=== PATIENT | male | born 1950 | race Caucasian/White ===

== ENCOUNTER 2024-05-31 09:31 | Outpatient (REF) | payer MEDICARE, SELFPAY ==
--- NOTE | ~2024-05-31 | CT_ITS ---
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 COMPARISON: None available. TECHNIQUE: Contiguous axial imaging was performed from the skull base to vertex without intravenous administration of contrast. This CT examination was performed using dose optimization techniques as appropriate, variously including the following: *Automated exposure control *Adjustment of mA and/or kV according to patient size (this includes techniques or standardized protocols for targeted exams where dose is matched to indication/reason for exam; i.e. extremities or head) *Use of iterative reconstruction technique DLP: 800 mGy-cm FINDINGS: No intracranial hemorrhage, large infarction, or mass lesion is seen. Diffuse cortical atrophy and mild bilateral chronic periventricular white matter ischemic change. No extra-axial collection is appreciated. The ventricles are normal in size and configuration without evidence of hydrocephalus. The visualized paranasal sinuses and mastoid air cells are clear. CT/CT head/brain wo IV con IMPRESSION: No acute intracranial finding. Electronically signed by: Omkar Cedeno MD 05/31/2024 02:29 PM EDT
--- NOTE | ~2024-05-31 | XR_ITS ---
EXAMINATION: XR BILATERAL HIPS WITH AP PELVIS CLINICAL INFORMATION: Bilateral hip pain. COMPARISON: None available. TECHNIQUE: AP and frog-leg lateral views of each hip and an AP view of the pelvis. 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 No fracture or malalignment. Joint spaces appear well preserved. SI joints are unremarkable. Facet arthropathy is noted in the lower lumbar spine along with degenerative disc disease at L5-S1. Enthesopathic spurring is present at the ischial tuberosities. XR/XR hip BI w PEL1V IMPRESSION: 1. 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 No acute osseous findings. 2. Degenerative disc disease and facet arthropathy in the lower lumbar spine. Electronically signed by: Wyatt Perez MD 05/31/2024 12:38 PM EDT
== END 2024-05-31 09:32 | disposition home or self-care (01) ==
LOC: HO.CT 09:31
PROVIDERS: PCP Nurse Practitioner Family; Visit Provider Psychiatry & Neurology Neurology
DX: M25.551 Pain in right hip (principal); M25.552 Pain in left hip; G23.9 Degenerative disease of basal ganglia, unspecified
CPT/HCPCS: 70450; 73521

== ENCOUNTER 2024-09-02 18:32 | Emergency (ER) | payer MEDICARE, MEDICAID, SELFPAY ==
--- NOTE | 2024-09-02 | ECG_ITS ---
Test Reason : CHEST PAIN Blood Pressure : / mmHG Vent. Rate : 100 BPM Atrial Rate : 100 BPM P-R Int : 164 ms QRS Dur : 078 ms QT Int : 346 ms P-R-T Axes : 046 -20 064 degrees QTc Int : 446 ms Normal sinus rhythm Septal infarct , age undetermined Inferior infarct , age undetermined Abnormal ECG No previous ECGs available Referred By: Generic ED Physician Electronically Signed By:Efren Colby
--- NOTE | ~2024-09-02 | CT_ITS ---
EXAMINATION: CT ABDOMEN AND PELVIS WITH CONTRAST CLINICAL INFORMATION: Epigastric pain COMPARISON: None available. TECHNIQUE: Multidetector volumetric images were obtained from the superior aspect of the liver through the pubic symphysis following administration 85 mL of Omnipaque 350 intravenous contrast. Sagittal and coronal reformatted images were obtained on the technologist's workstation. Oral contrast: No This CT examination was performed using dose optimization techniques as appropriate, variously including the following: *Automated exposure control *Adjustment of mA and/or kV according to patient size (this includes techniques or standardized protocols for targeted exams where dose is matched to indication/reason for exam; i.e. extremities or head) *Use of iterative reconstruction technique DLP: 720 mGy-cm FINDINGS: LUNG BASES: The visualized lung bases are unremarkable. LIVER, GALLBLADDER, AND BILIARY TREE: Large right lobe is lobulated well-defined low-density lesion measuring up to 9.3 cm. It measures low density favoring a cyst. Smaller cyst segment 5 noted measuring approximately 10 mm. The morphology normal. Scattered other cysts within the left lobe subcentimeter in size. The gallbladder is unremarkable with no evidence of radiopaque gallstones, gallbladder wall thickening, or obvious pericholecystic inflammatory changes. No biliary ductal dilatation. PANCREAS: Unremarkable. SPLEEN: Unremarkable. ADRENAL GLANDS: Unremarkable. KIDNEYS AND URETERS: The kidneys are normal in size, shape, and attenuation. No hydronephrosis, hydroureter, or calculi seen. No perinephric stranding. BLADDER: Diffusely thick wall without evidence for any stones. GASTROINTESTINAL TRACT: The small and large bowel are unremarkable. No inflammatory changes or fluid collection. ABDOMINAL WALL: No significant hernia is appreciated. LYMPH NODES: Normal. VASCULAR: Unremarkable. PELVIC VISCERA: Unremarkable. OSSEOUS STRUCTURES: Unremarkable. CT/CT abdomen pelvis w IV con IMPRESSION: 1. No specific findings to explain patient's symptoms. 2. Incidental hepatic cysts as above. 3. Large right lobe is lobulated well-defined low-density lesion measuring up to 9.3 centimeter is most consistent with a large hepatic cyst. Fleischner guidelines were followed. Electronically signed by: Josep Chambers MD 09/02/2024 09:32 PM [facility]
--- NOTE | ~2024-09-02 | XR_ITS ---
EXAMINATION: XR CHEST CLINICAL INFORMATION: sob COMPARISON: None available. TECHNIQUE: Frontal view of the chest was obtained. FINDINGS: Mild peribronchial vascular opacities may reflect edema or atypical infection. No effusion or pneumothorax. Cardiomediastinal silhouette is within normal limits. XR/XR chest 1V IMPRESSION: Mild peribronchial vascular opacities may reflect edema or atypical infection. Electronically signed by: Anca Montano MD 09/02/2024 07:30 PM [facility]
[2024-09-02 18:35] VITALS: BP 144/92; BP 170/79; PULSE 108; PULSE 109; RESP 18; TEMP 36.7; O2SAT 94; O2SAT 96; BMI 25.2
[2024-09-02 18:59] LABS: MANUAL DIFF FLAG NO
[2024-09-02 19:01] LABS: Basophils Absolute Auto 0.1 X10*3/uL (0.0-0.2); Basophils Percent Auto 0.3 % (0-2); Eosinophils Absolute Auto 0.1 X10*3/uL (0.0-0.4); Eosinophils Percent Auto 0.6 % (0-4); Hematocrit 42.1 % (42.0-52.0); Imm Gran Abs Auto 0.06 X10*3/uL (0.00-0.03); Imm Gran Pct Auto 0.4 % (0.0-0.4); Lymphocytes Absolute Auto 1.3 X10*3/uL (1.2-4.9); Lymphocytes Percent Auto 8.1 % (20-40); Mean Corpuscular HGB Conc 33.3 g/dl (31.0-36.0); Mean Corpuscular Hemoglobin 32.3 pg (27.0-33.0); Mean Platelet Volume 10.4 fL (9.4-12.4); Monocytes Percent Auto 6.7 % (2-11); Neutrophils Percent Auto 83.9 % (45-73); Platelet Count 290 X10*3/uL (160-400); Red Blood Count 4.34 X10*6/uL (4.60-5.80); Red Cell Distribution Width 12.4 % (11.0-16.0); White Blood Count 15.4 X10*3/uL (4.8-10.8)
[2024-09-02 19:37] LABS: Influenza A PCR NEGATIVE (Negative); Influenza B PCR NEGATIVE (Negative); Resp Syncy Virus RNA Qual PCR NEGATIVE (Negative); SARS COV2 PCR INHOUSE NEGATIVE (Negative)
[2024-09-02 19:40] LABS: Alanine Aminotransferase 25 U/L (0-40); Albumin Level 3.8 g/dL (3.5-5.0); Alkaline Phosphatase 92 U/L (39-117); Anion Gap 17 (12-20); Aspartate Amino Transferase 48 U/L (5-37); Bilirubin Total 0.3 mg/dL (0.0-1.0); Blood Urea Nitrogen 32 mg/dL (9-16); Calcium 8.9 mg/dL (8.4-10.2); Carbon Dioxide 25 mmol/L (22-29); Chloride 108 mmol/L (96-108); Creatinine Clr Calc Pharmacy 75.1; Estimated Glomerular Filt Rate > 60; Glucose Random 119 mg/dL (60-115); Magnesium 2.1 mg/dL (1.6-2.6); Potassium 4.1 mmol/L (3.3-5.1); Sodium 146 mmol/L (135-145); Total Protein 7.4 g/dL (6.5-8.0)
[2024-09-02 19:47] LABS: Troponin-I High Sensitivity 18.7 ng/L (<3.5-35.0)
[2024-09-02 20:05] VITALS: BP 164/77; PULSE 94; RESP 16; TEMP 36.7; O2SAT 98
--- NOTE | 2024-09-02 20:33 | ED.CHESTPAIN ---
HPI - Chest Pain General Chief Complaint: Chest Pain Stated Complaint: chest pain after trying to pass bowel movement Time Seen by Provider: 09/02/24 20:18 Source: patient, EMS and other (skilled nursing [employer] consultant) Mode of arrival: EMS Limitations: other (TBI) History of Present Illness ED Provider: Dr. Ania Akers HPI narrative: Patient comes to the emergency room by ambulance from a retirement. According to the patient, they retirement [employer] consultant and EMS, patient has been complaining of burning sensation. According to the patient's [employer] consultant, patient started complaining of chest pain after having a bowel movement. However, patient states that it is not pain, it is a burning sensation radiating from his stomach up to his chest. EMS gave the patient 1 dose of p.o. aspirin 324 mg. Related Data Previous Rx's ?Medication ?Instructions ?Recorded omeprazole 40 mg capsule,delayed 40 mg PO DAILY #60 caps 09/02/24 release Allergies Allergy/AdvReac Type Severity Reaction Status Date / Time No Known Allergies Allergy Verified 09/02/24 18:41 Review of Systems Review of Systems: Constitutional : No Weight loss, No Fever, No Chills, No Night Sweats, No Fatigue, No Malaise ENT/Mouth : No Hearing loss, No Ear Pain, No Nasal Congestion, No Sinus Pain, No Hoarseness, No sore throat, No Rhinorrhea, No Swallowing Difficulty Eyes: No Eye Pain, No Swelling, No Redness, No Foreign Body, No Discharge, No Vision Changes Cardiovascular : No Chest Pain, No SOB, No Dyspnea on Exertion, No Orthopnea, No Edema, No Palpitations Respiratory : No Cough, No Sputum, No Wheezing, No Smoke Exposure, No Dyspnea Gastrointestinal : No Nausea, No Vomiting, No Diarrhea, No Constipation, complaining of burning epigastric pain radiating towards the chest Genitourinary : no irregular bleeding, No Dysuria, No Urinary Frequency, No Hematuria, No Urinary Incontinence, No Urgency, No Flank Pain, No Urinary Flow Changes, No Hesitancy Musculoskeletal : No joint pain, No Myalgias, No Joint Swelling Skin : No Skin Lesions, No rash Neuro : No Weakness, No Numbness, No Paresthesias, No Loss of Consciousness, No Dizziness, No Headache Psych : No Anxiety/Panic, No Depression, No SI/HI/AH/VH, No Social Issues, Heme/Lymph: No Bruising, No Bleeding,No Lymphadenopathy Endocrine : No Polyuria, No Polydipsia, No Temperature Intolerance [facility] Past Medical History Medical History (Updated 09/02/24 @ 23:15 by Ania Akers MD) Parkinsons Social History Social History Smoked in Last 30 Days: No Use of substances other than those prescribed or required for medical reasons: No Advance Directives: No Advance Directives Information Provided: No Do you have a plan to hurt others: No Plan Physical Exam Vital Signs: Vital Signs: Last Vital Signs Temp 97.6 F 09/02/24 22:30 Pulse 94 09/02/24 22:30 Resp 22 H 09/02/24 22:30 BP 150/71 H 09/02/24 22:30 Pulse Ox 97 09/02/24 22:30 O2 Del Method Room Air 09/02/24 22:30 BMI result Body Mass Index 25.2 Const: Other: Appearance: Alert. No acute distress. Eyes: Pupils equal, round and reactive to light. ENT: Pharynx normal. Neck: Normal inspection. Neck supple. No lymph nodes noted. No crepitus CVS: Normal heart rate and rhythm. Pulses normal. Normal S1 and S2 Respiratory: No respiratory distress. Breath sounds normal. No Wheezing. No rales Abdomen: Soft , tenderness to palpation in the epigastric area, no rebound or guarding. Mild pain in the periumbilical area. Skin: Skin warm and dry. Normal skin color. Normal skin turgor. Extremities: No lower extremity edema. No Lacerations. No Rash Neuro: Oriented X 3. No motor deficit. No sensory deficit. Moving all extremities. No slurred speech. CN 2 through 12 grossly intact Psych: calm, cooperative, normal affect Course Course Course Narrative: Patient denies chest but complaining of epigastric burning sensation and epigastric pain. Patient received 324 mg of aspirin per EMS Patient denies any chest pain at this point Vitals stable, blood pressure 164/77, heart rate 94 CT scan of the abdomen/pelvis pending Medications Administered Discontinued Medications Generic Name Dose Route Start Last Admin Trade Name Freq PRN Reason Stop Dose Admin Iohexol 100 ml 09/02/24 20:53 09/02/24 20:53 Iohexol 350 Mg/Ml 100 Ml Infus..Btl IV 09/02/24 20:54 85 ml ONCE ONE Administration Medical Decision Making Medical Decision Making [facility] Narrative: My interpretation of labs: Patient's white blood cell count 15.4, chemistry does not show any significant electrolyte abnormality, troponin x2 negative, BNP negative -CT scan does not show any acute abnormality, chronic large right hepatic cyst -patient stable Patient was given p.o. Maalox and viscous lidocaine for symptomatic treatment Patient is adamant that he has no chest pain Differential Diagnosis Differential Diagnoses: The differential diagnosis associated with the presentation includes (ACS, pancreatitis, choledocholithiasis, cholecystitis) Admission/Observation Consideration of admission/observation: Escalation of care including admission/observation considered (Given patient's age and symptoms, observation was considered.) Lab Data [facility] Lab Attestation statement: I reviewed the patient's lab results. 09/02/24 18:49 09/02/24 19:20 Labs: Lab Results 09/02/24 09/02/24 09/02/24 Range/Units 18:49 18:50 19:20 WBC 15.4 H (4.8-10.8) X10*3/uL RBC 4.34 L (4.60-5.80) X10*6/uL Hgb 14.0 (14.0-18.0) g/dl Hct 42.1 (42.0-52.0) % MCV 97.0 (80.0-98.0) fL MCH 32.3 (27.0-33.0) pg MCHC 33.3 (31.0-36.0) g/dl RDW 12.4 (11.0-16.0) % Plt Count 290 (160-400) X10*3/uL MPV 10.4 (9.4-12.4) fL Immature Gran % (Auto) 0.4 (0.0-0.4) % Neut % (Auto) 83.9 H (45-73) % Lymph % (Auto) 8.1 L (20-40) % Barry % (Auto) 6.7 (2-11) % Eos % (Auto) 0.6 (0-4) % Baso % (Auto) 0.3 (0-2) % Lymph # (Auto) 1.3 (1.2-4.9) X10*3/uL Barry # (Auto) 1.0 (0.1-1.2) X10*3/uL Eos # (Auto) 0.1 (0.0-0.4) X10*3/uL Baso # (Auto) 0.1 (0.0-0.2) X10*3/uL Abs Immat Gran (auto) 0.06 H (0.00-0.03) X10*3/uL Absolute Neuts (auto) 13.0 H (2.0-8.3) x10*3/uL Absolute Nucleated RBC 0.000 (0.0-0.012) X10*3/uL Nucleated RBC % (auto) 0.0 (0.0-0.2) /100WBC Sodium 146 H (135-145) mmol/L Potassium 4.1 (3.3-5.1) mmol/L Chloride 108 (96-108) mmol/L Carbon Dioxide 25 (22-29) mmol/L Anion Gap 17 (12-20) BUN 32 H (9-16) mg/dL Creatinine 0.89 (0.5-1.4) mg/dL Estim Creat Clear Calc 75.1 Estimated GFR > 60 Random Glucose 119 H (60-115) mg/dL Calcium 8.9 (8.4-10.2) mg/dL Magnesium 2.1 (1.6-2.6) mg/dL Total Bilirubin 0.3 (0.0-1.0) mg/dL AST 48 H (5-37) U/L ALT 25 (0-40) U/L Alkaline Phosphatase 92 (39-117) U/L Troponin I High Sens 18.7 (<3.5-35.0) ng/L B-Natriuretic Peptide < 10 (<100) pg/mL Total Protein 7.4 (6.5-8.0) g/dL Albumin 3.8 (3.5-5.0) g/dL Lipase 18 (8-78) U/L Influenza Type A (PCR) NEGATIVE (Negative) Influenza Type B (PCR) NEGATIVE (Negative) RSV RNA Qual (PCR) NEGATIVE (Negative) SARS-CoV-2 RNA (RT-PCR) NEGATIVE (Negative) 09/02/24 Range/Units 22:29 WBC (4.8-10.8) X10*3/uL RBC (4.60-5.80) X10*6/uL Hgb (14.0-18.0) g/dl Hct (42.0-52.0) % MCV (80.0-98.0) fL MCH (27.0-33.0) pg MCHC (31.0-36.0) g/dl RDW (11.0-16.0) % Plt Count (160-400) X10*3/uL MPV (9.4-12.4) fL Immature Gran % (Auto) (0.0-0.4) % Neut % (Auto) (45-73) % Lymph % (Auto) (20-40) % Barry % (Auto) (2-11) % Eos % (Auto) (0-4) % Baso % (Auto) (0-2) % Lymph # (Auto) (1.2-4.9) X10*3/uL Barry # (Auto) (0.1-1.2) X10*3/uL Eos # (Auto) (0.0-0.4) X10*3/uL Baso # (Auto) (0.0-0.2) X10*3/uL Abs Immat Gran (auto) (0.00-0.03) X10*3/uL Absolute Neuts (auto) (2.0-8.3) x10*3/uL Absolute Nucleated RBC (0.0-0.012) X10*3/uL Nucleated RBC % (auto) (0.0-0.2) /100WBC Sodium (135-145) mmol/L Potassium (3.3-5.1) mmol/L Chloride (96-108) mmol/L Carbon Dioxide (22-29) mmol/L Anion Gap (12-20) BUN (9-16) mg/dL Creatinine (0.5-1.4) mg/dL Estim Creat Clear Calc Estimated GFR Random Glucose (60-115) mg/dL Calcium (8.4-10.2) mg/dL Magnesium (1.6-2.6) mg/dL Total Bilirubin (0.0-1.0) mg/dL AST (5-37) U/L ALT (0-40) U/L Alkaline Phosphatase (39-117) U/L Troponin I High Sens 15.6 (<3.5-35.0) ng/L B-Natriuretic Peptide (<100) pg/mL Total Protein (6.5-8.0) g/dL Albumin (3.5-5.0) g/dL Lipase (8-78) U/L Influenza Type A (PCR) (Negative) Influenza Type B (PCR) (Negative) RSV RNA Qual (PCR) (Negative) SARS-CoV-2 RNA (RT-PCR) (Negative) Independent Interpretation I performed an independent interpretation of an: CT Scan Radiology Impression Discussion of test interpretation with radiology: I have reviewed the radiologist's reading. Radiologist Impression: 1. No specific findings to explain patient's symptoms. 2. Incidental hepatic cysts as above. 3. Large right lobe is lobulated well-defined low-density lesion measuring up to 9.3 centimeter is most consistent with a large hepatic cyst. Independent Historian Clinical information obtained from an independent historian. History obtained from or confirmed by: Other (skilled nursing [employer] consultant) Critical Care Time Critical Care Time Critical Care Time: Yes Total Critical Care Time: 45 Attestation: I have personally provided critical care time. Time includes review of lab data, radiology results, discussion with consultants, and monitoring for potential decompensation. Intervention performed as documented. Discharge Plan Discharge Clinical Impression: Abdominal pain, Chest pain due to GERD Patient Disposition: Home, Self-Care Instructions: Chest Pain (ED), Diet for Stomach Ulcers and Gastritis (ED), Abdominal Pain (ED) Additional Instructions: Please follow-up with your primary care physician tomorrow. If you have any worsening or new symptoms, please return to the emergency room or call 911 Prescriptions: New omeprazole 40 mg capsule,delayed release(DR/EC) 40 mg PO DAILY Qty: 60 0RF Print Language: Azeri
[2024-09-02 20:49] LABS: Lipase 18 U/L (8-78)
[2024-09-02 20:51] LABS: B Type Natriuretic Peptide < 10 pg/mL (<100)
[2024-09-02] MEDS: iohexoL 350 MG/ML 100 ML INFUS..BTL IV (20:53)
[2024-09-02 22:30] VITALS: BP 150/71; PULSE 94; RESP 22; TEMP 36.4; O2SAT 97
[2024-09-02 22:52] LABS: Troponin-I High Sensitivity 15.6 ng/L (<3.5-35.0)
[2024-09-02] MEDS: Magnesium Hydrox/Alum Hydrox 30 ML ORAL.SUSP 15 ML PO (23:37)
[2024-09-02] MEDS: Lidocaine HCl Viscous 2 % 15 ML SOLUTION MUCOUS MEM (23:37)
[2024-09-03 01:01] VITALS: BP 150/71; PULSE 94; RESP 22; TEMP 36.4; O2SAT 97
== END 2024-09-03 01:02 | disposition home or self-care (01) ==
PROVIDERS: Emergency Provider Emergency Medicine
DX: R07.89 Other chest pain (principal); K21.9 Gastro-esophageal reflux disease without esophagitis; R10.2 Pelvic and perineal pain; R06.02 Shortness of breath; R10.33 Periumbilical pain; Z03.818 Encounter for observation for suspected exposure to other biological agents ruled out; Z79.899 Other long term (current) drug therapy
CPT/HCPCS: 0241U; 36415; 71045; 74177; 80053; 83690; 83735; 83880; 84484; 85025; 93005; 99285; Q9967

== ENCOUNTER → 2024-09-02 18:50 | Outpatient (BNV) | payer MEDICARE, MEDICAID, SELFPAY | PROVIDERS: Emergency Provider Emergency Medicine; Visit Provider Internal Medicine Cardiovascular Disease | DX: R07.9 Chest pain, unspecified (principal); R94.31 Abnormal electrocardiogram [ECG] [EKG] | CPT/HCPCS: 93010 ==

== ENCOUNTER 2025-05-08 10:57 | Outpatient (AMB) | payer MEDICARE, MEDICAID, SELFPAY ==
--- OUTSIDE RECORDS SUMMARY | 2024-12-13 07:00 | XMS_ITS ---
Author Organization [facility] Address [address] [facility] [address] [place] [address] Care Team Providers Care Director Metabolism Name Role Phone Dorothy Jane Primary Care Provider Shay Carrasco Unavailable [phone] REASON FOR VISIT Follow up wound care Medications Medication SIG (Take, Route, Frequency, Duration) Notes Start Date End Date Status Linezolid 600 MG 1 tablet Orally ever y 12 hrs; Duration: 10 days 12/10/2024 Active Colace 100 MG 1 capsule as needed Orally twice daily Active Flomax 0.4 MG 1 capsule Orally Onc e a day Active Acetaminophen 325 MG 1 tablet as needed Orally every 6 hrs 04/16/2024 Active Sinemet 25-100 MG 1 tablet as needed Orally three times daily Active Protein - as directed Orally Pro heal 30 G m twice daily Active Omeprazole 20 MG 1 tablet 30 minutes before morning meal Orally Once a day; Duration: 30 day(s) 04/16/2024 Active Encounters Encounter Location Date Provider Diagnosis [facility] [address] [facility] [address] [place] [address] 12/13/2024 Shay Vidal Wheelchair dependenc e Z99.3 ; Pressure ulcer of left hip, stage 3 L89.223 and Cognitive communication deficit R41.841 Assessments Encounter Date Diagnosis (ICD Code) Assessment Notes Treatment Notes Treatment Clinical Notes Section Notes 12/13/2024 Wheelchair dependence (ICD-10 - Z99.3) 12/13/2024 Pressure ulcer of left hip, stage 3 (ICD-10 - L89.223) 12/13/2024 Cognitive communication deficit (ICD-10 - R41.841) 12/13/2024 Andie Ricky is followed for 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 He continues with wound vac at this time. He is accompanied by a caregiver from his skilled nursing. HIs wound vac was not able to be placed due to electric charging cord stripped and pending skilled nursing to [facility] On assessment today, Ricky is noted to be afebrile and other VS were within normal limits. The patient appears not to have pain or discomfort related to the wound. We removed dressings, and I examined the wound site. There is concern for underlying s/s of infection. Mil odor and surroudning erythema noted The left hip stage 3 pressure ulcer is noted noted with epibole to periwound and The wound bed is noted with slough as well After examination, I discussed the indication of debridement and the [facility] staff and patient was agreeable. I then performed debridement to remove devitalized tissues as outlined. He tolerated procedure well. Due to wound vac ot available for use and wound culutre obtained at todays appointment, willl place wound vac on hold x1 week pending culture. Cleanse wound with normal saline, zinc to periwound and HFB ready to wound bed and cover with dry dressing Patient and caregiver was educated to continue the above treatment plan with follow up at clinic next week. restart wound vac dependent on culture resultes and and when charging cable arrives to skilled nursing Educated on importance of off loading, repositioning, nutrition, hydration I, Shay Vidal, MSN, CALENDER LET OFF HELPER, DEFLASH AND WASH OPERATOR-C, examined, evaluated, and treated the patient. Dr. Angie Kang was available for any questions or concerns that I may have had. 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 He continues with wound vac at this time. He is accompanied by a caregiver from his skilled nursing. HIs wound vac was not able to be placed due to electric charging cord stripped and pending skilled nursing to [facility] On assessment today, Ricky is noted to be afebrile and other VS were within normal limits. The patient appears not to have pain or discomfort related to the wound. We removed dressings, and I examined the wound site. There is concern for underlying s/s of infection. Mil odor and surroudning erythema noted The left hip stage 3 pressure ulcer is noted noted with epibole to periwound and The wound bed is noted with slough as well After examination, I discussed the indication of debridement and the [facility] staff and patient was agreeable. I then performed debridement to remove devitalized tissues as outlined. He tolerated procedure well. Due to wound vac ot available for use and wound culutre obtained at todays appointment, willl place wound vac on hold x1 week pending culture. Cleanse wound with normal saline, zinc to periwound and HFB ready to wound bed and cover with dry dressing Patient and caregiver was educated to continue the above treatment plan with follow up at clinic next week. restart wound vac dependent on culture resultes and and when charging cable arrives to skilled nursing Educated on importance of off loading, repositioning, nutrition, hydration I, Shay Vidal, MSN, CALENDER LET OFF HELPER, DEFLASH AND WASH OPERATOR-C, examined, evaluated, and treated the patient. Dr. Angie Kang was available for any questions or concerns that I may have had. Next Appt Details Follow Up: 1 Week, Reason: Progress Notes * Antwon ALEXANDERhDOB: 0 (75 yo M)Acc No.[id number]:12/13/2024 Patient: Ricky MONROE Provider: Shereen Vidal NP :1950 A ge:74 Y S ex:Male Date:12/13/2024 Address:[address] [place] [address] Pcp:Dorothy Jane Subjective: * Chief Complaints: * 1 . Follow up wound care. * HPI: W ound Care: Ricky is a returning 74 y/o male patient presents for follow up the left hip pressure wound. He is accompanied by a [facility] staff today. Per skilled nursing staff, the left hip wound has been present since approx 08/29/24. However, the staff does not recall how patient sustained the wound. Pt usually leans one side on his wheelchair and assuming he sustained the wound from the pressure. Pt' left hip area wound has been worsened and there was thick eschar and now unstageable. The 11/08/24: Patient with plan for wound vac placement. 11/01/24 wound culture obtained and grew proteus Mirabilis, enterococci, Escherichia coli, susceptible to amox clav, escribed 10-day course on 11/07/24 Currently he is being treated with wound vac at 125 mmHg with black foam. VNA goes to skilled nursing and provides wound vac changes twice a week, On 11/27/24 the skilled nursing staff stated that the nurse performing wound vac change wound not position tubbing to accommodate patients needs 12/06/24 patient broke wound vac electrical cord, and skilled nursing calling fay lay nephew to have one delivered. * ROS: G eneral / Constitutional: Patient denies c hills, fatigue, fever. R espiratory: Patient denies c ough, shortness of breath. ? M usculoskeletal: Comments P t is wheelchair bound. S kin: Patient denies a ny new concerns related to wound(s) at todays visit. * Medical History: * Medications: T aking Protein - Liquid as directed Orally , Notes to Pharmacist: Pro heal 30 Gm twice daily, Taking Sinemet 25-100 MG Tablet 1 tablet as needed Orally three times daily , Taking Flomax 0.4 MG Capsule 1 capsule Orally Once a day , Taking Colace 100 MG Capsule 1 capsule as needed Orally twice daily , Taking Acetaminophen 325 MG Tablet 1 tablet as needed Orally every 6 hrs , Taking Omeprazole 20 MG Tablet Delayed Release 1 tablet 30 minutes before morning meal Orally Once a day , Taking Linezolid 600 MG Tablet 1 tablet Orally every 12 hrs Objective: * Vitals: Assessment: * Assessment: 1. P ressure ulcer of left hip, stage 3 - L89.223 (Primary) 2 . W heelchair dependence - Z99.3 3 . C ognitive communication deficit - R41.841 ? Plan: * Treatment: * Procedure Codes: 1 1043 DEBRIDE TISSUE/MUSCLE * Follow Up: 1 Week * Billing Information: * Visit Code: * Procedure Codes: 43734 DEBRIDE TISSUE/MUSCLE. * Electronic signature of Kwan Vidal NP on 05/08/2025 at 11:51 AM EDT Sign off status: Pending * Provider: Shereen Vidal NP Date: 0 12/13/2024 Generated for Jayson blackwell/Seven/Monetitting on: 0 05/08/2025 11:51 AM EDT History and Physical Notes * HPI (History of Present Illness) Category Sub-Category Detail Notes Category Not es Wound Care Ricky is a returning 74 y/o male patient presents for follow up the left hip pressure wound. He is accompanied by a [facility] staff today. Per skilled nursing staff, the left hip wound has been present since approx 08/29/24. However, the staff does not recall how patient sustained the wound. Pt usually leans one side on his wheelchair and assuming he sustained the wound from the pressure. Pt' left hip area wound has been worsened and there was thick eschar and now unstageable. The 11/08/24: Patient with plan for wound vac placement. 11/01/24 wound culture obtained and grew proteus Mirabilis, enterococci, Escherichia coli, susceptible to amox clav, escribed 10-day course on 11/07/24 Currently he is being treated with wound vac at 125 mmHg with black foam. VNA goes to skilled nursing and provides wound vac changes twice a week, On 11/27/24 the skilled nursing staff stated that the nurse performing wound vac change wound not position tubbing to accommodate patients needs 12/06/24 patient broke wound vac electrical cord, and skilled nursing calling fay schneider to have one delivered
--- OUTSIDE RECORDS SUMMARY | 2025-04-23 12:30 | XMS_ITS | Encounter Summary ---
Author Organization [facility] Address [address] [place] [address] Care Team Providers Care Defective Cigarette Slitter Name Role Phone Octavio Sanchez MD Primary Care Provider [phone] Reason for Visit * Reason Comments Wound Care Encounter Details Date Type Department Care Team (Late st Contact Info) Description 04/23/2025 12:30 PM EDT Office Visit [facility] [address] [place] [phone] Oswald Zaman PA [address] [place] [address] Pressure injury of left hip, stage 4 (CMS/HCC V24, CMS/HCC V28) (Primary Dx) Social History Tobacco Use Types Packs/Day Years Used Date Smoking Tobacco: Never Smokeless Tobacco: Never Alcohol Use Standard Drinks/Week Comments No 0 (1 standard drink = 0.6 oz pur e alcohol) Sex and Gender Information Value Date Recorded Sex Assigned at Male 09/19/2024 2:55 PM EST Legal Sex Male 2:02 PM EST Gender Identity Male 09/19/2024 2:55 PM EST Sexual Orientation Straight 09/19/2024 2: 55 PM EST documented as of this encounter Last Filed Vital Signs Vital Sign Reading Time Taken Comments Blood Pressure 149/76 04/23/2025 12:46 PM EDT Pulse 90 04/23/2025 12:46 PM EDT Temperature 36.3 C (97.4 F) 04/23/2025 12:46 PM EDT Respiratory Rate 16 04/23/2025 12:46 PM EDT Oxygen Saturation 96% 04/23/2025 12:46 PM EDT Inhaled Oxygen Concentration - - Weight - - Height - - Body Mass Index - - documented in this encounter Progress Notes * Yeimy Sierra RN - 04/23/2025 12:30 PM EDT PROVIDER ORDERS Go to ER if you are presenting with fever, chills, increased redness, pain, swelling, warmth aroundwound area and/or foul smelling odor. If you have any questions or concerns, please contact the [place] [facility] at . Kriss pad given to staff, please have it under pt prior to next appt if pt unable to transfer with staff Follow up(s)/ Referrals: N/A [facility]: Home care: [facility] Additional Orders: Increase protein in your diet to help promote wound healing Lidocaine Orders: Apply Lidocaine 4% Topical Solution prior to debridements at Wound Care appointments Edema Control: (If your compression wrap(s) feel to tight, please elevate your leg(s) about heart level. If your wrap(s) are becoming painful and/or you loose sensation of toes/ are having toe discoloration (a change from your baseline), please remove / unwrap compression and notify [facility] at . ) N/A Offloading: Low air-loss mattress (Group 2), Turn and reposition every 2 hours. Reposition ever hour while up in chair., Limit pressure to wound as much as possible - Offload heels Negative Pressure Wound Therapy: (If wound vac is off/non functioning for more than 2 hours, please remove vac dressing, apply a wetto dry dressing and notify your home care agency) N/A Cellular/Tissue Based Products: N/A Bathing / Showering / Hygiene: May shower with protection but DO NOT get wound dressing(s) wet. Protect dressing(s) with water repellant cover ( for example- large plastic bag or cast bag) and then may take shower. Non-wound Condition/ Other Skin Care: N/A Wound Location(s): Wound #1 (Left Hip): Cleanser: Cleanse with Normal Saline Periwound: Apply Skin Prep to julio cesar wound Topical: N/A Primary dressing: Collagen with Silver- will dissolve in wound. If not dissolving you may moisten with saline prior to covering. (gently pack into wound, will dissolve) Secondary dressinx4 Foam border dressing Secure with: N/A Compression Therapy: N/A Dressing Change Frequency: Every Other Day * Laura Wyatt RN - 04/23/2025 12:30 PM EDT Discharge Patient directed to check out at front end loader operator and collect visit summary with wound care directions and book follow up as directed. Dressings applied: Wound #1 (Left Hip): Cleanser: Normal Saline Periwound: Skin Prep Primary dressing: Collagen with Silver- pre moistened Secondary dressinx4 Foam border dressing Dressing technique was demonstrated and explained. Patient questions answered. Pt discharge from wound care center without issue or incidence. documented in this encounter Plan of Treatment Upcoming Encounters Date Type Department Care Team (Late st Contact Info) Description 05/15/2025 3:00 PM EDT Office Visit Internal Medicine - [place] [facility] [address] [place] [address] Andrea Burciaga NP [address] [place] [address] 05/27/2025 10:40 AM EDT Office Visit [facility] [address] [facility] [address] [place] [address] Blossom Juárez NP [place] [address] 05/28/2025 1:00 PM EDT Clinical Support [facility] [address] [place] [phone] documented as of this encounter Goals Goal Patient Goal Type Associated Problems Recent Progress Patient-Stated? Author PT LTGs General No Ricco Azul PT Note: Pt and caregiver will be independent with HEP - met Decrease Wound Volume by X% by date (in notes) Care Plan Impaired Tissue Improving( 2:11 PM EDT) Frances Jacobson RN Patient and Caregiver Understand Wound Care Education Care Plan Impaired Tissue On track( 025 2:12 PM EDT) Frances Jacobson RN Wound volume breakdown reduced by X% by week 4 Care Plan Impaired Tissue No Frances Thompson RN Wound volume breakdown reduced by X% by week 8 Care Plan Impaired Tissue No Frances Thompson RN Wound volume breakdown reduced by X% by week 12 Care Plan Impaired Tissue No Frances Thompson RN Quit using tobacco (cigarettes, smokeless, etc) Care Plan Education needed on impact of smoking on wound No Frances Thompson RN Reduce tobacco use (cigarettes, smokeless, etc) Care Plan Education needed on impact of smoking on wound No Frances Thompson RN Decrease Wound Volume by X% by date (in notes) Care Plan Education needed on impact of smoking on wound Frances Jacobson RN Patient and Caregiver Understand Wound Care Education Care Plan Education needed related to ulceration/comp romised skin integrity. No Frances Thompson RN documented as of this encounter Visit Diagnoses Diagnosis Pressure injury of left hip, stage 4 (CMS/HCC V24, CMS/HCC V28)- Primary documented in this encounter Additional Health Concerns Active Problems Noted Date Diagnosed Date Impaired Tissue 12/14/2024 Education needed on impact of smoking on wound 0 12/14/2024 Education needed related to ulceration/compromised skin integrity. 12/14/2024 Assessment Noted Time PHQ-9 Depression Total Score: 0 12/15/19 10:10 AM EDT documented as of this encounter Care Teams Defective Cigarette Slitter Relationship Specialty Start Date End Date Octavio Sanchez MD [address] [place] [phone] PCP - General Internal Medicine 09/21/24 documented as of this encounter
--- OUTSIDE RECORDS SUMMARY | 2025-05-07 13:15 | XMS_ITS | Encounter Summary ---
Author Organization [facility] Address [address] [place] [address] Care Team Providers Care Animation Camera Operator Name Role Phone Octavio Sanchez MD Primary Care Provider [phone] Reason for Visit * Reason Comments Wound Care Encounter Details Date Type Department Care Team (Late st Contact Info) Description 05/07/2025 1:15 PM EDT Office Visit [facility] [address] [place] [phone] Oswald Zaman PA [address] [place] [address] Pressure injury of left hip, stage 4 [...] Sign Reading Time Taken Comments Blood Pressure 149/60 05/07/2025 1:34 PM EDT Pulse 82 05/07/2025 1:34 PM EDT Temperature 36.6 C (97.8 F) 05/07/2025 1:34 PM EDT Respiratory Rate 18 05/07/2025 1:34 PM EDT Oxygen Saturation 97% 05/07/2025 1:34 PM EDT Inhaled Oxygen Concentration - - Weight - - Height - - Body Mass Index - - documented in this encounter Progress Notes * Yeimy Sierra RN - 05/07/2025 1:15 PM EDT PROVIDER ORDERS Go to ER if you are presenting with fever, chills, increased redness, pain, swelling, warmth aroundwound area and/or foul smelling odor. If you have any questions or concerns, please contact the [facility] [place] at . Kriss pad given to staff, please have it under pt prior to next appt if pt unable to transfer with staff Follow up(s)/ Referrals: N/A Long Term: Home care: [facility] Additional Orders: Increase [...] compression and notify [facility] at . ) N/A Offloading: Low [...] Skin Prep to julio cesar wound Topical: Woun'dres- Apply a thin layer to wound bed Primary dressing: N/A Secondary dressinx4 Foam border dressing Secure with: N/A Compression Therapy: N/A Dressing Change Frequency: Every Other Day * Frances Thompson RN - 05/07/2025 1:15 PM EDT Discharge Patient directed to check out at medical front desk coordinator and collect visit summary with wound care directions and book follow up as directed. Dressings applied: Wound #1 (Left Hip): Cleanser: Cleanse with Normal Saline Periwound: Apply Skin Prep to julio cesar wound Topical: Hydrogel- Apply a thin layer to wound bed Secondary dressinx4 Foam border dressing Dressing technique was demonstrated and explained. Patient questions answered. Pt discharge from wound care center without issue or incidence. documented in this encounter Plan of Treatment Upcoming Encounters Date Type Department Care Team (Late st Contact Info) Description 05/15/2025 3:00 PM EDT Office Visit Internal Medicine - [place] [address] [facility] [address] [place] [address] Andrea Burciaga NP [address] [place] [address] 05/27/2025 10:40 AM EDT Office Visit [facility] [address] [facility] [address] [place] [address] Blossom Juárez NP [address] [place] [address] [place] [address] 05/28/2025 1:00 PM EDT Clinical Support [facility] [address] [place] [address] documented as of this encounter Goals Goal Patient Goal Type Associated Problems Recent Progress Patient-Stated? Author PT LTGs General No Ricco Azul, PT Note: Pt and caregiver will be independent with HEP - met Decrease Wound Volume by X% by date (in notes) Care Plan Impaired Tissue Improving( 2:11 PM EDT) Frances Jacobson RN Patient and Caregiver Understand Wound Care Education Care Plan Impaired Tissue On track( 025 2:12 PM EDT) No Frances Thompson RN Wound volume breakdown [...] smoking on wound No Frances Thompson RN Patient and Caregiver Understand Wound Care [...] documented as of this encounter Care Teams Animation Camera Operator Relationship Specialty Start Date End Date Octavio Sanchez MD [address] [place] [address] PCP - General Internal Medicine 09/21/24 documented as of this encounter
--- NOTE | 2025-05-08 11:02 | A.OFFVIS_ITS ---
Vital Signs 05/08/25 11:03 Height 5 ft 10 in Intake Visit Reasons: 6 month Accompanied by: Staff member Allergies No Known Allergies Allergy (Verified 05/08/25 11:11) Medication List - Last Reconciled 05/08/25 by Klaudia Koch CNP carbidopa-levodopa 25-100 mg 1 tab PO QID finasteride 5 mg PO DAILY omeprazole 40 mg PO DAILY pantoprazole 40 mg PO DAILY tamsulosin mg PO HPI Comments Details: 75-year-old man with encephalopathy and parkinsonian syndrome. He lived with his sister for most of his life, but has been living in a retirement since 11/2023. His walking has deteriorated and is unable to walk independently. He was walking with walker with someone following behind with wheelchair, but now he was mostly using wheelchair. He shuffles when he walks and his legs get shaky. He is cognitively challenged and it is unclear if there has been any worsening of his mental state. His speech is always difficult to understand. He has urinary incontinence. He was doing okay. He was taking carbidopa-levodopa 25-100mg four times a day. No medication side effects. Tremors were stable. He was following a pureed diet. No difficulty eating, drinking, or swallowing. He was primarily in a wheelchair. He required 2-assist to stand. He had some pain in his ankles. No recent falls. Sleep was okay. [facility] Medical History (Updated 05/08/25 @ 11:06 by Klaudia Koch CNP) Parkinsons Review of Systems Const Denies chills, Denies daytime sleepiness, Denies difficulty sleeping, Denies fatigue, Denies fever(s), Denies frequent falls, Denies headache(s), Denies increased appetite, Denies poor appetite, Denies snoring, Denies weakness, Denies weight gain and Denies weight loss Eyes Denies loss of vision ENT Denies vertigo, Denies dizziness, Denies headache(s) and Denies neck pain Card Denies chest pain at rest, Denies chest pain with activity, Denies syncope, Denies leg edema, Denies palpitations, Denies dyspnea and Denies dyspnea on exertion Resp Denies cough, Denies dyspnea, Denies dyspnea on exertion and Denies snoring GI Denies abdominal pain, Denies constipation, Denies heartburn, Denies diarrhea and Denies nausea Denies urinary frequency, Reports urinary incontinence and Denies urinary urgency Musc Reports abnormal gait (balance difficulty), Denies back pain, Denies myalgias, Denies arthralgias, Denies neck pain, Denies numbness and Denies tingling Neuro Reports abnormal gait (balance difficulty), Denies vertigo, Denies dizziness, Denies syncope, Denies frequent falls, Denies headache(s), Denies lack of coordination, Denies loss of vision, Denies memory loss, Denies numbness, Denies Other visual disturbances, Denies restless legs, Denies seizure-like activity, Denies tingling, Denies paresthesias, Reports tremor(s) and Denies weakness Psych Denies anxiety, Denies depression, Denies auditory hallucinations, Denies memory loss and Denies visual hallucinations Endo Denies fatigue and Denies palpitations Physical Exam Const Other: General Appearance:? normal, in no acute distress. Heart:? S1, S2 normal, no murmurs. Lungs:? clear anteriorly and posteriorly. Musculoskeletal:? normal. Extremities:? no edema. Psych:? alert, cooperative with exam. Neuro Other: Abnormal Neurological Findings:?In wheelchair.?Decreased facial expression and reduced blinking frequency. Mild bradykinesia. Mild tremor on FTN.?Increased tone with cogwheeling to BUE. Reflexes are brisk. His speech is difficult to understand.?He has cognitive challenges. Mental Status: alert. Cranial Nerves: Pupils are equal, round, and reactive to light. External ocular muscles are intact. Visual galindo are full, no ptosis. Face is symmetrical, no facial weakness or droop. Facial sensations are normal. Tongue protrudes in midline. Palate elevates symmetrically. Shoulder shrugging is normal Motor Examination: Brisk reflexes. Sensory Exam: Normal light touch, temperature, pinprick, vibration, and joint- position sensations. Rhomberg sign is absent. Coordination: No ataxia. No titubation. Gait Exam: In wheelchair Cerebellar Signs: [id number] with mild tremor. Extrapyramidal System: As above. Speech: Dysarthria. Results Reviewed Results Reviewed: CT brain 05/31/2024: Diffuse cortical atrophy and mild bilateral chronic periventricular white matter ischemic change. No extra-axial collection is appreciated. The ventricles are normal in size and configuration without evidence of hydrocephalus. 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 (2) hypoxic-ischemic encephalopathy: Code(s): P91.60 - Hypoxic ischemic encephalopathy [HIE], unspecified Category: Medical Qualifiers: Hypoxic ischemic encephalopathy severity: unspecified severity Qualified Code(s): P91.60 - Hypoxic ischemic encephalopathy [HIE], unspecified Plan . 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
--- OUTSIDE RECORDS SUMMARY | 2025-05-08 11:51 | XMS_ITS | Encounter Summary ---
Author Organization [facility] Address [address] [place] [address] Care Team Providers Care Job Setter Name Role Phone Octavio Sanchez MD Primary Care Provider [phone] Encounter Details Date Type Department Care Team (Late Contact Info) Description 05/03/2025 Telephone Internal Medicine - [place] [address] [facility] [address] [place] [phone] Octavio Sanchez MD [address] [place] [address] Social History Tobacco Use Types Packs/Day Years [...] PM EST documented as of this encounter Progress Notes * Earnestine Mathew - 05/03/2025 2:25 PM EDT Patient resides in [facility] unable to do bowel prep for colonoscopy Please send patient order cologuard documented in this encounter Plan of Treatment Upcoming Encounters Date Type Department Care Team (Late Contact Info) Description 05/15/2025 3:00 PM EDT Office Visit Internal Medicine [facility] [address] [facility] [address] [place] [phone] Andrea Burciaga NP [address] [place] [address] 05/27/2025 10:40 AM EDT Office Visit [facility] [address] [facility] [address] [place] [phone] Blossom Juárez NP [address] [place] [address] [place] [address] 05/28/2025 1:00 PM EDT Clinical Support [facility] [address] [place] [phone] documented as of this encounter Goals Goal Patient Goal Type Associated Problems Recent Progress Patient-Stated? Author PT LTGs General No Ricco Azul PT Note: Pt and caregiver will be independent with HEP - met Decrease Wound Volume by X% by date (in notes) Care Plan Impaired Tissue Improving( 2:11 PM EDT) No Frances Thompson RN Patient and Caregiver Understand Wound Care Education Care Plan Impaired Tissue On track( 2:12 PM EDT) No Frances Thompson RN [...] documented as of this encounter Visit Diagnoses Not on filedocumented in this encounter Additional Health Concerns Active Problems Noted Date Diagnosed Date Impaired Tissue 12/14/2024 Education needed on impact of smoking on wound 0 12/14/2024 Education needed related to ulceration/compromised skin integrity. 12/14/2024 Assessment Noted Time PHQ-9 Depression Total Score: 0 12/15/19 10:10 AM EDT documented as of this encounter Care Teams Job Setter Relationship Specialty Start Date End Date Octavio Sanchez MD [address] [id number] PCP - General Internal Medicine 09/21/24 documented as of this encounter
--- OUTSIDE RECORDS SUMMARY | 2025-05-08 11:51 | XMS_ITS | Clinical Summary ---
Author Organization [facility] Address [address] [place] [address] Phone Care Team Providers Care Roll Icer Machine Name Role Phone Octavio Sanchez MD Primary Care Provider [phone] Allergies No known active allergies Medications albuterol sulfate 90 mcg/actuation aerosol powdr breath activated Inhale into the lungs. Active carbidopa-levo dopa (SINEMET) 25-100 mg per tablet Take 1 Tablet by mouth 3 times daily. Active dextromethorph an-guaifenesin (Robitussin Cough-Chest Manuel DM) 5-50 mg/5 mL liquid Take 20 mL by mouth every 6 hours as needed. Active diclofenac (VOLTAREN) 1 % topical gel Apply 1 g topically 2 times daily. 07/11/20 24 Active TRANSFER DEVICE, CLOSED SYSTEM MISC 1 Each by Does not apply route daily. 01/06/20 24 Active incontinence pad, liner, disp pad 1 Each by Does not apply route daily. 12/06/19 24 Active MULTIVITAMIN ORAL Take by mouth. Activ e lactose-reduce d food (BOOST HIGH PROTEIN ORAL) Take 1 Each by mouth 2 times daily for 99 days. 11/25/19 24 Active omeprazole (PriLOSEC) [address] capsule Take 1 capsule (20 mg total) by mouth 1 (one) time each day. 12/10/19 24 Active polyethylene glycol (Golytely) 236-22.74-6.74 -5.86 gram solution Take 4L by mouth once for one dose. May substitue any PEG. Starting at 6PM the night before your procedure drink 1 8oz glasses at your own pace until you complete half of the gallon. Finish 2nd half of the gallon 5 hours before your procedure. 4000 mL 09/21/19 25 Active bisacodyL (DULCOLAX) 5 mg EC tablet Take 2 tablets by mouth right before beginning bowel prep. See instructions provided by the office 2 tablet 09/21/19 25 Active pantoprazole (PROTONIX) 40 mg EC tablet Take 1 tablet (40 mg total) by mouth 1 (one) time each day. Take in am on empty stomach, wait 30 mins and then eat to activate the medication 30 each 09/21/19 25 Active aluminum-magne sium hydroxide-morena thicone (MAALOX) 200-200-20 mg/5 mL suspension Take 30 mL by mouth 4 (four) times a day (before meals and nightly). May take as needed four times daily for esophageal discomfort 769 mL 09/21/19 25 Active simethicone (Mylanta Gas) 125 mg chewable tablet Chew 1 tablet (125 mg total) every 6 (six) hours if needed for flatulence. 60 tablet 11 10/19/19 25 Active finasteride (PROSCAR) 5 mg tablet Take 1 tablet (5 mg total) by mouth 1 (one) time each day. Do not crush, chew, or split. Active zinc oxide 20 % ointment Apply topically if needed. Active acetaminophen (TYLENOL 8 HOUR) 650 mg 8 hr tablet Take 1 tablet (650 mg total) by mouth every 8 (eight) hours if needed for mild pain. 30 tablet 1 12/27/19 25 Active polyethylene glycol (Golytely) 236-22.74-6.74 -5.86 gram solution Take 4L by mouth once for one dose. May substitue any PEG. Starting at 6PM the night before your procedure drink 1 8oz glasses at your own pace until you complete half of the gallon. Finish 2nd half of the gallon 5 hours before your procedure. 4000 mL 01/23/20 25 Active bisacodyL (DULCOLAX) 5 mg EC tablet Take 2 tablets by mouth right before beginning bowel prep. See instructions provided by the office 2 tablet 01/23/20 25 Active carboxymethylc ellulose (REFRESH PLUS) 0.5 % ophthalmic solution 11/18/19 25 Active tamsulosin (FLOMAX) 0.4 mg 24 hr capsule TAKE (1) CAPSULE BY MOUTH DAILY. TAKE 30 MINUTES AFTER SAME MEAL EVERY DAY. 30 capsule 05/01/20 25 Active docusate sodium (COLACE) 100 mg capsule TAKE (1) CAPSULE BY MOUTH TWICE DAILY. 60 capsule 05/01/20 25 Active tamsulosin (FLOMAX) 0.4 mg 24 hr capsule Take 1 capsule (0.4 mg total) by mouth 1 (one) time each day. 30 capsule 04/04/20 25 025 Discontinued docusate sodium (COLACE) 100 mg capsule TAKE (1) CAPSULE BY MOUTH TWICE DAILY 60 capsule 04/04/20 25 025 Discontinued Active Problems Problem Noted Date Diagnosed Date Parkinson's disease ([facility] V24, [facility] V28) 1 COVID-19 04/26/2022 Frequent falls 04/26/2022 Overview (08/12/2024): Last Assessment & Plan: He has had no recurrent fainting spells. He did not do the tilt table test and I do not believe this is warranted. Symptoms have resolved. Generalized weakness 04/26/2022 GERD (gastroesophageal reflux disease) 2 Urinary retention 04/26/2022 Valvular heart disease 04/26/2022 Overview (08/12/2024): Last Assessment & Plan: I did review his echocardiographic findings with the sister as well as the patient. His left ventricular systolic function was normal and EF of 65 to 70%. There was no mention of wall motion abnormality. There is trace aortic regurgitation mitral regurgitation moderate pulmonary insufficiency. I explained to the patient's sister that I do not think this is dangerous to him. I also do not think this is responsible for his falls. GERD with esophagitis 03/19/2022 Moderate pulmonary valve insufficiency 2 Overview (08/12/2024): ECHO 03/02/2022 EF 65-70% Last Assessment & Plan: He has moderate pulmonary valve insufficiency on echocardiogram. This is likely been present for quite a while. He does not have any symptoms. Continue to monitor every 3 to 5 years unless symptoms change. Pure hypercholesterolemia 01/18/2019 Subclinical hypothyroidism 01/18/2019 Encounters Date Type Department Care Team Description 05/07/2025 1:15 PM EDT Office Visit [facility] [address] [place] [phone] Oswald Zaman PA Pressure injury of left hip, stage 4 ([facility] V24, [facility] V28) (Primary Dx) 05/03/2025 Telephone Internal Medicine [facility] 175 [facility] [address] [place] [phone] Octavio Sanchez MD 05/03/2025 Telephone Internal Medicine [facility] 175 [facility] [address] [place] [phone] Velasquez Butler MA 05/02/2025 1:15 PM EDT Office Visit Internal Medicine [address] [place] [phone] Octavio Sanchez MD Pedal edema (Primary Dx); Parkinson's disease, unspecified whether dyskinesia present, unspecified whether manifestations fluctuate ([facility] V24, [facility] V28) 04/30/2025 Telephone Internal Medicine [facility] [address] [phone] Octavio Sanchez MD 04/23/2025 12:30 PM EDT Office Visit [facility] [address] [place] [phone] Oswald Zaman PA Pressure injury of left hip, stage 4 ([facility] V24, [facility] V28) (Primary Dx) 04/02/2025 1:00 PM EDT Office Visit [facility] [address] [place] [phone] Oswald Zaman PA Pressure injury of left hip, stage 4 ([facility] V24, [facility] V28) (Primary Dx) 03/27/2025 12:30 PM EDT Treatment [address] [phone] Ricco Azul, PT Achilles tendinitis, left leg (Primary Dx) 03/21/2025 11:30 AM EDT Office Visit [facility] [address] [place] [phone] Oswald Zaman, PA Pressure injury of left hip, stage 4 ([facility] V24, [facility] V28) (Primary Dx) 03/19/2025 12:30 PM EDT Treatment [address] [phone] Ricco Azul, PT Achilles tendinitis, left leg (Primary Dx) 03/14/2025 10:15 AM EDT Office Visit Orthopedic Surgery [facility] [address] [phone] Wes Finch, DPM Achilles tendinitis, left leg (Primary Dx); Heel spur, left; PAD (peripheral artery disease) ([facility] V24); Dermatophytosis, nail 03/07/2025 11:30 AM EDT Office Visit [facility] [address] [place] [phone] Oswald Zaman, PA Pressure injury of left hip, stage 4 ([facility] V24, [facility] V28) (Primary Dx) 02/25/2025 12:30 PM EDT Evaluation [address] [phone] Ricco Azul, PT Achilles tendinitis, left leg 02/25/2025 Plan of Care Documentation [address] [phone] 02/21/2025 11:00 AM EDT Office Visit [facility] [address] [place] [phone] Oswald Zaman, PA Pressure injury of left hip, stage 4 ([facility] V24, [facility] V28) (Primary Dx) 02/14/2025 2:00 PM EDT Office Visit [facility] [address] [place] [phone] Oswald Zaman PA Pressure injury of left hip, stage 4 ([facility] V24, [facility] V28) (Primary Dx) 02/14/2025 Telephone Gastroenterology - [place] 175 [facility] 175 [facility] [address] [place] [phone] Jessika Durán PA from Last 3 Months Immunizations Name Administration Dates Next Due Influenza trivalent, 0.5mL (Fluad) 65yo and olde r 07/11/2024 Surgical History Surgery Date Site/Laterality Comments OTHER SURGICAL HISTORY PROCEDURE: DENIES PREVIOUS SURGERY Medical History Medical History Date Comments Patient denies medical problems DX:Patient denies medical problems Subclinical hypothyroidism 01/18/2019 DX:[place] bclinical hypothyroidism Moderate pulmonary valve insufficiency 03/09/2022 DX:Moderate pulmonary valve insufficiency; COMMENT: ECHO 03/02/2022 EF 65-70% GERD with esophagitis 03/19/2022 DX:GERD wi th esophagitis Parkinson's disease ([facility] V24, [facility] V28) Family History Medical History Relation Name Comments Heart attack Father Thyroid disease Mother Relation Name Status Comments Father Mother Alive Social History Tobacco Use Types Packs/Day Years [...] Orientation Straight 09/19/2024 2: 55 PM EST Obstetrics History Last Filed Vital Signs Vital Sign Reading Time Taken Comments Blood Pressure 149/60 05/07/2025 1:34 PM EDT Pulse 82 05/07/2025 1:34 PM EDT Temperature 36.6 C (97.8 F) 05/07/2025 1:34 PM EDT Respiratory Rate 18 05/07/2025 1:34 PM EDT Oxygen Saturation 97% 05/07/2025 1:34 PM EDT Inhaled Oxygen Concentration - - Weight 70.3 kg (155 lb) 12/27/2024 10:57 AM EDT Height 177.8 cm (5' 10 ) 12/27/2024 10:57 AM EDT Body Mass Index 22.24 12/27/2024 10:57 AM EDT Plan of Treatment Upcoming Encounters Date Type Department Care Team (Late st Contact Info) Description 05/15/2025 3:00 PM EDT Office Visit Internal Medicine - [place] 175 [facility] [address] [place] [phone] Andrea Bucriaga NP [address] [place] [phone] 05/27/2025 10:40 AM EDT [facility] Visit [facility] 102 [address] [facility] [address] [place] [phone] Blossom Juárez NP [address] [place] [phone] 05/28/2025 1:00 PM EDT Clinical Support [facility] [address] [place] [phone] Health Maintenance Due Date Last Done Comments DTaP,Tdap,and Td Vaccines (1 - Tdap) 1969 Zoster Vaccines (1 of 2) 2000 Colorectal Cancer Screening: Colonoscopy 08/21/2022 Medicare Annual Wellness Visit 08/21/2022 Social Influencers of Health Screening 08/21/2022 COVID-19 Vaccine ( season) 2024 07/21/2021, 12/07/2020, 11/09/2020 RSV Immunization Adult Patients (1 - 1-dose 75+ series) 2025 Falls Risk Assessment 12/14/2025 12/14/2024 Cholesterol Screening (Lipid Panel) 07/11/2029 07/11/2024, 07/11/2024, 01/06/2024 Hepatitis C Screening Completed 03/18/2022 Depression Screening Completed 12/14/2024 Influenza Vaccine Completed 05/03/2025, , 07/29/2020, Additional history exists Pneumococcal Vaccine: 50+ Years Completed 05/03/2025, 08/15/2017 HIB Vaccines Aged Out No longer eligi ble based on patient's age to complete this topic HPV Vaccines Aged Out No longer eligi ble based on patient's age to complete this topic Hepatitis A Vaccines Aged Out No long er eligible based on patient's age to complete this topic Hepatitis B Vaccines Aged Out No long er eligible based on patient's age to complete this topic IPV Vaccines Aged Out No longer eligi ble based on patient's age to complete this topic MMR Vaccines Aged Out No longer eligi ble based on patient's age to complete this topic Meningococcal ACWY Vaccine Aged Out N o longer eligible based on patient's age to complete this topic Meningococcal B Vaccine Aged Out No l onger eligible based on patient's age to complete this topic RSV Immunization Patients Under 20 months Aged Out No longer eligible based on patient's age to complete this topic Varicella Vaccines Aged Out No longer eligible based on patient's age to complete this topic Goals Goal Patient Goal Type Associated Problems [...] romised skin integrity. No Frances Thompson RN Procedures Procedure Name Priority Date/Time Associated Diagnosis Comments CBC WITH AUTO DIFFERENTIAL Routine 05/02/2025 1:47 PM EDT Pedal edema Parkinson's disease, unspecified whether dyskinesia present, unspecified whether manifestations fluctuate (CMS/HCC V24, CMS/HCC V28) B-TYPE NATRIURETIC PEPTIDE Routine 05/02/2025 1:47 PM EDT Pedal edema Parkinson's disease, unspecified whether dyskinesia present, unspecified whether manifestations fluctuate (CMS/HCC V24, CMS/HCC V28) COMPREHENSIVE METABOLIC PANEL Routine 05/02/2025 1:47 PM EDT Pedal edema Parkinson's disease, unspecified whether dyskinesia present, unspecified whether manifestations fluctuate (CMS/HCC V24, CMS/HCC V28) CBC AND DIFFERENTIAL Routine 05/02/2025 1:47 PM EDT Pedal edema Parkinson's disease, unspecified whether dyskinesia present, unspecified whether manifestations fluctuate (CMS/HCC V24, CMS/HCC V28) DEBRIDEMENT Routine 04/02/2025 1:00 PM EDT Pressure injury of left hip, stage 4 (CMS/HCC V24, CMS/HCC V28) DEBRIDEMENT Routine 03/21/2025 11:30 AM EDT Pressure injury of left hip, stage 4 (CMS/HCC V24, CMS/HCC V28) DEBRIDEMENT Routine 03/07/2025 11:30 AM EDT Pressure injury of left hip, stage 4 (CMS/HCC V24, CMS/HCC V28) DEBRIDEMENT Routine 02/21/2025 11:00 AM EDT Pressure injury of left hip, stage 4 (CMS/HCC V24, CMS/HCC V28) DEBRIDEMENT Routine 02/14/2025 2:00 PM EDT Pressure injury of left hip, stage 4 (CMS/HCC V24, CMS/HCC V28) LIPID PANEL Routine 07/11/2024 HM HEPATITIS C SCREENING Routine 03/18/2022 from Last 3 Months or Most Recently Relevant to Health Maintenance Results * CBC auto differential (05/02/2025 1:47 PM EDT) [facility] Signature WBC 7.5 4.8 - 10.8 K/mcL LAB HEMETOLOGY METHOD 05/02/2025 6:43 PM EDT [facility] RBC 4.60 4.50 - 5.50 M/mcL LAB HEMETOLOGY METHOD 05/02/2025 6:43 PM EDT [facility] Hemoglobin 14.2 13.5 - 17.5 g/dL LAB HEMETOLOGY METHOD 05/02/2025 6:43 PM EDT [facility] Hematocrit 43.5 42.0 - 54.0 % LAB HEMETOLOGY METHOD 05/02[facility]25 [facility] MCV 95.2 79.0 - 98.0 FL LAB HEMETOLOGY METHOD 05/02/2025 6:43 PM EDT [facility] MCH 31.1 27.0 - 32.0 pcg LAB HEMETOLOGY METHOD 05/02/2025 6:[facility] MCHC 32.6 32.0 - 37.0 g/dL LAB HEMETOLOGY METHOD 05/02/2025 6:[facility] RDW 12.9 11.0 - 15.0 % LAB HEMETOLOGY METHOD 05/02/2025 6:43 PM EDT [facility] Platelets 272 130 - 400 K/mcL LAB HEMETOLOGY METHOD 05/02/2025 6:[facility] MPV 10.6 7.0 - 11.0 FL LAB HEMETOLOGY METHOD 05/02/2025 6:[facility] NRBC 0.0 <1.0 % LAB HEMETOLOGY METHOD 05/02/2025 6:43 PM EDT [facility] NRBC Absolute 0.00 <0.10 K/mcL LAB HEMETOLOGY METHOD 05/02/2025 6:43 PM EDT [facility] Neutrophils Relative 69.5 % LAB HEMETOLOGY METHOD 05/02/2025 6:43 PM [facility] Lymphocytes Relative 19.4 % LAB HEMETOLOGY METHOD 05/02/2025 6:43 PM EDT [facility] Monocytes Relative 9.4 % LAB HEMETOLOGY METHOD 05/02/2025 6:[facility] Eosinophils Relative 1.1 % LAB HEMETOLOGY METHOD 05/02/2025 6:43 PM [facility] Basophils Relative 0.3 % LAB HEMETOLOGY METHOD 05/02/2025 6:43 PM [facility] Immature Granulocytes Relative 0.3 % LAB HEMETOLOGY METHOD 05/02/2025 6:43 PM [facility] Neutrophils Absolute 5.21 1.50 - 7.00 K/mcL LAB HEMETOLOGY METHOD 05/02/2025 6:43 PM [facility] Lymphocytes Absolute 1.45 1.00 - 5.00 K/mcL LAB HEMETOLOGY METHOD 05/02/2025 6:43 PM [facility] Monocytes Absolute 0.70 0.20 - 1.00 K/mcL LAB HEMETOLOGY METHOD 05/02/2025 6:43 PM [facility] Eosinophils Absolute 0.08 0.00 - 0.50 K/mcL LAB HEMETOLOGY METHOD 05/02/2025 6:43 PM [facility] Basophils Absolute 0.02 0.00 - 0.20 K/mcL LAB HEMETOLOGY METHOD 05/02/2025 6:43 PM [facility] Immature Granulocytes Absolute 0.02 0.00 - 0.03 K/mcL LAB HEMETOLOGY METHOD 05/02/2025 6:43 PM EDT [facility] Blood Venous blood specimen / Unknown Venipuncture / Unknown 05/02/2025 1:47 PM EDT 05/02/2025 1:47 PM EDT us Octavio Sanchez MD LAB BLOOD ORDERABLES Final Resul t Performing Organization Address City/[facility]/ZIP Co de Phone Number [facility] [address] [place] [address], [place] [phone] * B-type natriuretic peptide (05/02/2025 1:47 PM EDT) BNP 23 <=100 pcg/mL LAB CHEMISTRY METHOD 05/02/2025 9:59 PM EDT [facility] Blood Venous blood specimen / Unknown Venipuncture / Unknown 05/02/2025 1:47 PM EDT 05/02/2025 1:47 PM EDT us Octavio Sanchez MD LAB BLOOD ORDERABLES Final Resul t Performing Organization Address [facility]/ZIP Co de Phone Number [facility] [address] [place] [address], [place] [phone] * (ABNORMAL) Comprehensive metabolic panel (05/02/2025 1:47 PM EDT) Sodium 140 133 - 145 mmol/L LAB CHEMISTRY METHOD 05/02/2025 7:17 PM EDT [facility] Potassium 4.0 3.5 - 5.5 mmol/L LAB CHEMISTRY METHOD 05/02/2025 7:17 PM EDT [facility] Chloride 106 96 - 110 mmol/L LAB CHEMISTRY METHOD 05/02/2025 7:17 PM EDT [facility] CO2 30 21 - 32 mmol/L LAB CHEMISTRY METHOD 05/02/2025 7:17 PM EDT [facility] Anion Gap 4 3 - 11 LAB CHEMISTRY METHOD 05/02/2025 7:17 PM [facility] Glucose 101(H) 70 - 100 mg/dL LAB CHEMISTRY METHOD 05/02/2025 7:17 PM [facility] BUN 21 5 - 25 mg/dL LAB CHEMISTRY METHOD 05/02/2025 7:17 PM [facility] Creatinine 0.88 0.70 - 1.30 mg/dL LAB CHEMISTRY METHOD 05/02/2025 7:17 PM [facility] eGFR 90 >=60 mL/min/1. 73m2 LAB CHEMISTRY METHOD 05/02/2025 7:17 PM [facility] Comment:Calculation based on the Chronic Kidney Disease Epidemiology Collaboration (CKD-EPI) equation refit without adjustment for race. BUN/Creatinine Ratio 23.9 LAB CHEMISTRY METHOD 05/02/2025 7:17 PM [facility] Calcium 8.8 8.5 - 10.5 mg/dL LAB CHEMISTRY METHOD 05/02/2025 7:17 PM [facility] AST (SGOT) 13 10 - 42 unit/L LAB CHEMISTRY METHOD 05/02/2025 7:17 PM [facility] ALT (SGPT) 12 10 - 60 unit/L LAB CHEMISTRY METHOD 05/02/2025 7:17 PM [facility] Alkaline Phosphatase 101 42 - 121 unit/L LAB CHEMISTRY METHOD 05/02/2025 7:17 PM [facility] Total Protein 7.3 6.0 - 8.0 g/dL LAB CHEMISTRY METHOD 05/02/2025 7:17 PM [facility] Albumin 3.8 3.2 - 5.0 g/dL LAB CHEMISTRY METHOD 05/02/2025 7:17 PM [facility] Total Bilirubin 0.4 0.0 - 1.4 mg/dL LAB CHEMISTRY METHOD 05/02/2025 7:17 PM [facility] Blood Venous blood specimen / Unknown Venipuncture / Unknown 05/02/2025 1:47 PM EDT 05/02/2025 1:47 PM EDT Octavio Sanchez MD LAB BLOOD ORDERABLES Final Resul t [facility] ([facility]) [facility] [address] [place] [address], [place] [phone] * Debridement Pressure Injury Left Hip (04/02/2025 1:00 PM EDT) Narrative Armando Waller MD - 04/02/2025 1:00 PM EDT CORA Armenta 04/02/2025 1:45 PM Debridement Pressure Injury Left Hip Performed by: CORA Armenta Authorized by: CORA Armenta Associated wounds: Wound Pressure Injury 12/14/24 Hip Left Consent: Consent obtained: Verbal Consent given by: Patient Risks discussed: Yes Time out: Immediately prior to the procedure a time out was called Debridement Details: Performed by: CORA Type: surgical Level: subcutaneous tissue Pain control: Lidocaine 4% Severity of Tissue Pre Debridement: Fat layer exposed Severity of Tissue Post Debridement: Fat layer exposed Time taken: 04/02/2025 1:14 PM Length (cm): 0.5 Width (cm): 0.3 Depth (cm): 1.3 Area (cm^2): 0.15 Time taken: 04/02/2025 1:15 PM Length (cm): 0.5 Width (cm): 0.3 Depth (cm): 1.3 Percent Debrided (%): 50 Surface Area (cm^2): 0.15 Area Debrided (cm^2): 0.08 Volume (cm^3): 0.2 Tissue and other material debrided: subcutaneous tissue Devitalized tissue debrided: biofilm and slough Instrument: Curette Amount of bleeding: none Hemostasis obtained with: Not applicable Procedural pain: 0 Post-procedural pain: 0 Response to treatment: Procedure was tolerated well Oswald SHEPHERD IN CLINIC/BEDSIDE ORDERABLE S Final Result * Debridement Pressure Injury Left Hip (03/21/2025 11:30 AM EDT) Narrative Armando Waller MD - 03/21/2025 11:30 AM EDT CORA Armenta 03/21/2025 12:27 PM Debridement Pressure Injury Left Hip Performed by: CORA Armenta Authorized by: CORA Armenta Associated wounds: Wound Pressure Injury 12/14/24 Hip Left Consent: Consent obtained: Verbal Consent given by: Patient Risks discussed: Yes Time out: Immediately prior to the procedure a time out was called Debridement Details: Performed by: PA Type: surgical Level: subcutaneous tissue Pain control: Lidocaine 4% Severity of Tissue Pre Debridement: Fat layer exposed Severity of Tissue Post Debridement: Fat layer exposed Time taken: 03/21/2025 11:36 AM Length (cm): 0.4 Width (cm): 0.2 Depth (cm): 1.3 Area (cm^2): 0.08 Time taken: 03/21/2025 11:37 AM Length (cm): 0.4 Width (cm): 0.2 Depth (cm): 1.3 Percent Debrided (%): 50 Surface Area (cm^2): 0.08 Area Debrided (cm^2): 0.04 Volume (cm^3): 0.1 Tissue and other material debrided: dermis, epidermis and subcutaneous tissue Devitalized tissue debrided: biofilm and slough Instrument: Curette Amount of bleeding: none Hemostasis obtained with: Not applicable Procedural pain: 0 Post-procedural pain: 0 Response to treatment: Procedure was tolerated well us Oswald SHEPHERD IN CLINIC/BEDSIDE ORDERABLE S Final Result * Debridement Pressure Injury Left Hip (03/07/2025 11:30 AM EDT) Armando Martinez MD - 03/07/2025 11:30 AM EDT CORA Armenta 03/07/2025 12:13 PM Debridement Pressure Injury Left Hip Performed by: CORA Armenta Authorized by: CORA Armenta Associated wounds: Wound Pressure Injury 12/14/24 Hip Left Consent: Consent obtained: Verbal Consent given by: Patient Risks discussed: Yes Time out: Immediately prior to the procedure a time out was called Debridement Details: Performed by: CORA Type: surgical Level: subcutaneous tissue Pain control: Lidocaine 4% Severity of Tissue Pre Debridement: Fat layer exposed Severity of Tissue Post Debridement: Fat layer exposed Time taken: 03/07/2025 11:51 AM Length (cm): 0.4 Width (cm): 0.1 Depth (cm): 2 Area (cm^2): 0.04 Time taken: 03/07/2025 11:52 AM Length (cm): 0.7 Width (cm): 0.1 Depth (cm): 2 Percent Debrided (%): 50 Surface Area (cm^2): 0.07 Area Debrided (cm^2): 0.04 Volume (cm^3): 0.14 Tissue and other material debrided: dermis, epidermis and subcutaneous tissue Devitalized tissue debrided: biofilm and slough Instrument: Curette Amount of bleeding: none Hemostasis obtained with: Not applicable Procedural pain: 0 Post-procedural pain: 0 Response to treatment: Procedure was tolerated well us Oswald [facility]D IN CLINIC/BEDSIDE ORDERABLE S Final Result * Debridement Pressure Injury Left Hip (02/21/2025 11:00 AM EDT) Narrative Armando Waller MD - 02/21/2025 11:00 AM EDT CORA Armenta 02/21/2025 11:21 AM Debridement Pressure Injury Left Hip Performed by: CORA Armenta Authorized by: CORA Armenta Associated wounds: Wound Pressure Injury 12/14/24 Hip Left Consent: Consent obtained: Verbal Consent given by: Patient Risks discussed: Yes Time out: Immediately prior to the procedure a time out was called Debridement Details: Performed by: CORA Type: surgical Level: subcutaneous tissue Pain control: Lidocaine 4% Severity of Tissue Pre Debridement: Fat layer exposed Severity of Tissue Post Debridement: Fat layer exposed Time taken: 02/21/2025 11:06 AM Length (cm): 0.5 Width (cm): 0.3 Depth (cm): 2.5 Area (cm^2): 0.15 Time taken: 02/21/2025 11:07 AM Length (cm): 0.5 Width (cm): 0.3 Depth (cm): 2.5 Percent Debrided (%): 75 Surface Area (cm^2): 0.15 Area Debrided (cm^2): 0.11 Volume (cm^3): 0.38 Tissue and other material debrided: subcutaneous tissue Devitalized tissue debrided: biofilm and slough Instrument: Curette Amount of bleeding: none Hemostasis obtained with: Not applicable Procedural pain: 0 Post-procedural pain: 0 Response to treatment: Procedure was tolerated well Oswald [facility] IN CLINIC/BEDSIDE ORDERABLE S Final Result * Debridement Pressure Injury Left Hip (02/14/2025 2:00 PM EDT) Armando Martinez MD - 02/14/2025 2:00 PM EDT CORA Armenta 02/14/2025 2:27 PM Debridement Pressure Injury Left Hip Performed by: CORA Armenta Authorized by: CORA Armenta Associated wounds: Wound Pressure Injury 12/14/24 Hip Left Consent: Consent obtained: Verbal Consent given by: Patient Risks discussed: Yes Time out: Immediately prior to the procedure a time out was called Debridement Details: Performed by: CORA Type: surgical Level: subcutaneous tissue Pain control: Lidocaine 4% Severity of Tissue Pre Debridement: Fat layer exposed Severity of Tissue Post Debridement: Fat layer exposed Time taken: 02/14/2025 2:07 PM Length (cm): 0.7 Width (cm): 0.3 Depth (cm): 1.6 Area (cm^2): 0.21 Time taken: 02/14/2025 2:08 PM Length (cm): 0.7 Width (cm): 0.3 Depth (cm): 1.6 Percent Debrided (%): 75 Surface Area (cm^2): 0.21 Area Debrided (cm^2): 0.16 Volume (cm^3): 0.34 Tissue and other material debrided: subcutaneous tissue Devitalized tissue debrided: biofilm and slough Instrument: Curette Amount of bleeding: small Hemostasis obtained with: Pressure and silver nitrate Procedural pain: 0 Post-procedural pain: 0 Response to treatment: Procedure was tolerated well Oswald [facility] IN CLINIC/BEDSIDE ORDERABLE S Final Result * Lipid panel (07/11/2024) LDL/HDL Ratio 3 0 - 4 Triglycerides 61 0 - 150 mg/dL Cholesterol 171 0 - 200 mg/dL HDL 59 >=40 mg/dL LDL Cholesterol 100 0 - 100 mg/dL Blood Venous blood specimen / Unknown us Historical Provider LAB BLOOD ORDERABLES Sheree l Result * Hepatitis C Screening (03/18/2022) Hepatitis C Screening ABSTRACTED Historical Provider HEALTH MAINTENANCE Final Result from Last 3 Months or Most Recently Relevant to Health Maintenance Additional Health Concerns Active Problems Noted Date Diagnosed Date Impaired Tissue 12/14/2024 Education needed on impact of smoking on wound 0 12/14/2024 Education needed related to ulceration/compromised skin integrity. 12/14/2024 Insurance MEDICARE MEDICAID - [place] Advance Directives Documents on File Type Date Recorded Patient Sheet Metal Supervisor Expl anation Health Care Decision (hx) 08/28/2023 HE ALTH CARE PROXY Care Teams Roll Icer Machine Relationship Specialty Start Date End Date Octavio Sanchez MD [address] [facility] [address] [place] [address] PCP - General Internal Medicine 09/21/24
--- OUTSIDE RECORDS SUMMARY | 2025-05-08 11:51 | XMS_ITS | Encounter Summary ---
Author Organization [facility] Address [address] [place] [address] Care Team Providers Care Wellness Program Manager Name Role Phone Octavio Sanchez MD Primary Care Provider [phone] Reason for Visit * Reason Onset Date Comments Lab Results 05/03/2025 Encounter Details Date Type Department Care Team ([facility] Contact Info) Description 05/03/2025 Telephone Internal Medicine - [address] [place] [address] Velasquez Butler MA Social History Tobacco Use Types Packs/Day Years [...] as of this encounter Progress Notes * Velasquez Butler MA - 05/03/2025 12:26 PM EDT Called pt, confirmed lab results. ----- Message from Liz Sanchez MD sent at 05/03/2025 8:02 AM EDT ----- General labs done was okay. referred to talent acquisition administrator for leg swelling. Could be from lack of movement documented in this encounter Plan of Treatment Upcoming Encounters Date Type Department Care Team ([facility] st Contact Info) Description 05/15/2025 3:00 PM EDT Office Visit Internal Medicine - [place] [address] [facility] [address] [place] [phone] Andrea Burciaga, LEIGH [address] [place] [address] 05/27/2025 10:40 AM EDT Office Visit [facility] - [facility] [address] [facility] [address] [place] [phone] Blossom Juárez, LEIGH [address] [place] [address] [place] [address] 05/28/2025 1:00 PM EDT Clinical Support [facility] [address] [place] [phone] documented as of this encounter Goals Goal [...] documented as of this encounter Care Teams Wellness Program Manager Relationship Specialty Start Date End Date Octavio Sanchez MD [address] [address] PCP - General Internal Medicine 09/21/24 documented as of this encounter
--- OUTSIDE RECORDS SUMMARY | 2025-05-08 11:51 | XMS_ITS | Clinical Summary ---
Author Organization [facility] Address [address] [place] [address] Care Team Providers Care Dance Hall Host/Hostess Name Role Phone Octavio Sanchez MD Primary Care Provider Unavailab le Allergies No known active allergies Medications Medication Sig Dispensed Refills Start Date End Date Status docusate sodium (COLACE) 100 MG capsule Take 1 capsule (100 mg total) by mouth 2 (two) times a day. 0 Active tamsulosin (FLOMAX) 0.4 MG CAPS Take 1 capsule (0.4 mg total) by mouth daily. 0 Active omeprazole (PriLOSEC) 20 MG capsule Take 1 capsule (20 mg total) by mouth daily. 0 Active Albuterol Sulfate 108 (90 Base) MCG/ACT AEPB Inhale into the lungs. 0 Active guaiFENesin-dextrometh orphan (ROBITUSSIN DM) 100-10 MG/5ML liquid Take 5 mL by mouth every 12 (twelve) hours. 0 Active acetaminophen (TYLENOL) 650 MG CR tablet Take 1 tablet (650 mg total) by mouth every 8 (eight) hours as needed for pain. 0 Active carbidopa-levodopa (Sinemet) 25-100 MG per tablet Take by mouth 3 (three) times a day. 0 Active omeprazole (PriLOSEC) 40 MG capsule Take 1 capsule (40 mg total) by mouth daily. 0 Active Social History Tobacco Use Types Packs/Day Years Used Date Smoking Tobacco: Never Tobacco Cessation:Counseling Given: Not Answered Alcohol Use Standard Drinks/Week Comments Not Currently 0 (1 standard drink = 0.6 oz pur e alcohol) Sex and Gender Information Value Date Recorded Sex Assigned at Not on file Gender Identity Not on file Sexual Orientation Not on file Job Start Date Occupation Industry Not on file Not on file Not on file Last Filed Vital Signs Vital Sign Reading Time Taken Comments Blood Pressure 114/61 04/26/2024 10:39 AM EDT Pulse 80 04/26/2024 10:39 AM EDT Temperature 36.9 C (98.5 F) 04/26/2024 10:39 AM EDT Respiratory Rate - - Oxygen Saturation 100% 04/26/2024 10:39 AM EDT Inhaled Oxygen Concentration - - Weight - - Height - - Body Mass Index - - Plan of Treatment Health Maintenance Due Date Last Done Comments Hepatitis C Screening 1950 COVID-19 Vaccine (#1) 1950 Depression Screening 1962 Preventative Health Evaluation 1968 DTap / Tdap / Td (1 - Tdap) 1969 Colon Cancer Screening (Colonoscopy) 1995 Shingrix-Zoster Vaccine (1 o f 2) 2000 Fall Risk Assessment 2015 Pneumococcal Vaccine (2 of 2 - PPSV23 or PCV20) 08/15/2018 08/15/2017, 08/15/2017 RSV Adult > 60+ Yrs or (1 - 1-dose 75+ series) 2025 Influenza Vaccine (#1) 2025 Hepatitis B Vaccines Aged Out No long er eligible based on patient's age to complete this topic RSV Ped < 20 months Aged Out No longe r eligible based on patient's age to complete this topic Care Teams Dance Hall Host/Hostess Relationship Specialty Start Date End Date Octavio Sanchez MD PCP - General Internal Medicine 01/24/24
--- OUTSIDE RECORDS SUMMARY | 2025-05-08 11:51 | XMS_ITS ---
Author Name [facility] Organization Unknown Care Team Organization Name Specialty Phone Email Start Date End Da te [facility] AKUA EDWARDS Primary Care 07/20/2022 04/30/20 24
--- OUTSIDE RECORDS SUMMARY | 2025-05-08 11:51 | XMS_ITS ---
Care Plan Created on: May 08, 2025 Ricky Stephenson : 1950 Sex: Male Author Organization [facility] Address [address] [place] [address] Phone Care Team Providers Care Smoke Eater Name Role Phone Octavio Sanchez MD Primary Care Provider [phone] Active Problems Problem Noted Date Diagnosed Date Parkinson's disease (CMS/[facility] V24, CMS/[facility] V28) 1 COVID-19 04/26/2022 Frequent falls [...] change. Pure hypercholesterolemia 01/18/2019 Subclinical hypothyroidism 01/18/2019 Additional Health Concerns Active Problems Noted Date Diagnosed Date Impaired Tissue 12/14/2024 Education needed on impact of smoking on wound 0 12/14/2024 Education needed related to ulceration/compromised skin integrity. 12/14/2024 Goals Goal Patient Goal Type Associated Problems Recent Progress Patient-Stated? Author PT LTGs General No Ricco Azul PT Note: Pt and caregiver will be independent with HEP - met Decrease Wound Volume by X% by date (in notes) Care Plan Impaired Tissue Improving( 2:11 PM EDT) No Farnces Thompson RN Patient and Caregiver Understand Wound [...] romised skin integrity. No Frances Thompson RN Interventions Care Plan Interventions Intervention Entry Date Outcome Provide caregiver with wound care procedure information 12/14/2024 Educate caregiver on proper wound care procedures 12/14/2024 Give provider list of wound care supplies 12/14/2024 Refill wound care supplies 12/14/2024 Send Wound Care Supplies 12/14/2024 Give provider list of wound care supplies 12/14/2024 Refill wound care supplies 12/14/2024 Send Wound Care Supplies 12/14/2024 Provide caregiver with wound care procedure information 12/14/2024 Educate caregiver on proper wound care procedures 12/14/2024 Document patient eligibility for HBO 12/14/2024 Assess patient for HBO treatment 12/14/2024 Record wound depth 12/14/2024 Record total wound area 12/14/2024 Measure wound progress 12/14/2024 Create an action plan identifying patient strengths and supports 12/14/2024 Establish quit date with patient 12/14/2024 Discuss prior cessation attempts 12/14/2024 Discuss preferred method of cessation and plan 12/14/2024 Discuss barriers to smoking cessation 12/14/2024 Discuss smoking status with patient 12/14/2024 Create an action plan identifying patient strengths and supports 12/14/2024 Establish quit date with patient 12/14/2024 Discuss prior cessation attempts 12/14/2024 Discuss preferred method of cessation and plan 12/14/2024 Discuss barriers to smoking cessation 12/14/2024 Discuss smoking status with patient 12/14/2024 Provide caregiver with wound care procedure information 12/14/2024 Educate caregiver on proper wound care procedures 12/14/2024 Document patient eligibility for HBO 12/14/2024 Assess patient for HBO treatment 12/14/2024 Record wound depth 12/14/2024 Record total wound area 12/14/2024 Measure wound progress 12/14/2024 Provide caregiver with wound care procedure information 12/14/2024 Educate caregiver on proper wound care procedures 12/14/2024 Document patient eligibility for HBO 12/14/2024 Assess patient for HBO treatment 12/14/2024 Record wound depth 12/14/2024 Record total wound area 12/14/2024 Measure wound progress 12/14/2024 Provide caregiver with wound care procedure information 12/14/2024 Educate caregiver on proper wound care procedures 12/14/2024 Document patient eligibility for HBO 12/14/2024 Assess patient for HBO treatment 12/14/2024 Record wound depth 12/14/2024 Record total wound area 12/14/2024 Measure wound progress 12/14/2024 Provide caregiver with wound care procedure information 12/14/2024 Educate caregiver on proper wound care procedures 12/14/2024 Give provider list of wound care supplies 12/14/2024 Refill wound care supplies 12/14/2024 Send Wound Care Supplies 12/14/2024 Give provider list of wound care supplies 12/14/2024 Refill wound care supplies 12/14/2024 Send Wound Care Supplies 12/14/2024 Provide caregiver with wound care procedure information 12/14/2024 Educate caregiver on proper wound care procedures 12/14/2024 Document patient eligibility for HBO 12/14/2024 Assess patient for HBO treatment 12/14/2024 Record wound depth 12/14/2024 Record total wound area 12/14/2024 Measure wound progress 12/14/2024 Related Goals and Interventions Goal Associated Intervent ions Decrease Wound Volume by X% by date (in notes) Give provider list of wound care supplie s; Refill wound care supplies; Send Wound Care Supplies; Provide caregiver with wound care procedure information; Educate caregiver on proper wound care procedures; Document patient eligibility for HBO; Assess patient for HBO treatment; Record wound depth; Record total wound area; Measure wound progress Patient and Caregiver Unders tand Wound Care Education Provide caregiver with wound care proced ure information; Educate caregiver on proper wound care procedures; Give provider list of wound care supplies; Refill wound care supplies; Send Wound Care Supplies Wound volume breakdown reduc ed by X% by week 4 Provide caregiver with wound care proced ure information; Educate caregiver on proper wound care procedures; Document patient eligibility for HBO; Assess patient for HBO treatment; Record wound depth; Record total wound area; Measure wound progress Wound volume breakdown reduc ed by X% by week 8 Provide caregiver with wound care proced ure information; Educate caregiver on proper wound care procedures; Document patient eligibility for HBO; Assess patient for HBO treatment; Record wound depth; Record total wound area; Measure wound progress Wound volume breakdown reduc ed by X% by week 12 Provide caregiver with wound care proced ure information; Educate caregiver on proper wound care procedures; Document patient eligibility for HBO; Assess patient for HBO treatment; Record wound depth; Record total wound area; Measure wound progress Quit using tobacco (cigarett es, smokeless, etc) Create an action plan identifying patien t strengths and supports; Establish quit date with patient; Discuss prior cessation attempts; Discuss preferred method of cessation and plan; Discuss barriers to smoking cessation; Discuss smoking status with patient Reduce tobacco use (cigarett es, smokeless, etc) Create an action plan identifying patien t strengths and supports; Establish quit date with patient; Discuss prior cessation attempts; Discuss preferred method of cessation and plan; Discuss barriers to smoking cessation; Discuss smoking status with patient Decrease Wound Volume by X% by date (in notes) Give provider list of wound care supplie s; Refill wound care supplies; Send Wound Care Supplies; Provide caregiver with wound care procedure information; Educate caregiver on proper wound care procedures; Document patient eligibility for HBO; Assess patient for HBO treatment; Record wound depth; Record total wound area; Measure wound progress Patient and Caregiver Unders tand Wound Care Education Provide caregiver with wound care proced ure information; Educate caregiver on proper wound care procedures; Give provider list of wound care supplies; Refill wound care supplies; Send Wound Care Supplies
--- OUTSIDE RECORDS SUMMARY | 2025-05-08 11:52 | XMS_ITS | Patient Health Record ---
Author Organization [facility] Address [address] [address] Care Team Providers Care Ash Conveyor Operator Name Role Phone TomyBobbi linnme Primary Care Provider Shay Carrasco Unavailable [phone] Marce Lugo Unavailable [phone] Jocelin Aparicio Unavailable [phone] Brianna Donnelly Unavailable [phone] Allergies No Known Allergies Reason For Referral No Information Medications Medication SIG (Take, Route, Frequency, Duration) Notes Start Date End Date Status Protein - as directed Orally Pro heal 30 G m twice daily Active Linezolid 600 MG 1 tablet Orally ever y 12 hrs; Duration: 10 days 12/10/2024 Active Colace 100 MG 1 capsule as needed Orally twice daily Active Flomax 0.4 MG 1 capsule Orally Onc e a day Active Omeprazole 20 MG 1 tablet 30 minutes before morning meal Orally Once a day; Duration: 30 day(s) 04/16/2024 Active Acetaminophen 325 MG 1 tablet as needed Orally every 6 hrs 04/16/2024 Active Sinemet 25-100 MG 1 tablet as needed Orally three times daily Active Problems Problem Type SNOMED Code ICD Code Onset Dates Problem Status W/U Status Risk Notes Problem Pressure ulcer o f left hip, unstageable (L89.220) Active confirmed Problem Pressure ulcer o f left hip, stage 3 (L89.223) Active confirmed Problem Cognitive communication 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) Cognitive communication deficit (R41.841) Active confirmed Problem Abrasion, hip (239438238) Abrasion, left hip, initial encounter (S70.212A) Active confirmed Problem Dependence on wheelchair (064469780) Wheelchair dependence (Z99.3) Active confirmed Vital Signs Heart Rate 84 /min 12/06/2024 Temperature 97.6 degrees Fahrenheit 12/06/2024 Respiratory Rate 16 /min 12/06/2024 Height-cm 177.8 cm 12/06/2024 Oximetry 97 % 12/06/2024 Blood pressure diastolic 66 mm Hg 12/06/2024 Height 70 in 12/06/2024 Blood pressure systolic 138 mm Hg 12/06/2024 Encounters Encounter Location Date Provider Diagnosis [facility] [address] [address] 09/13/2024 Jooyun Donnelly Abrasion, left hip, initial encounter S70.212A ; Wheelchair dependence Z99.3 and Cognitive communication deficit R41.[address] [address] 09/20/2024 Jooyun Donnelly Abrasion, left hip, initial encounter S70.212A ; Wheelchair dependence Z99.3 ; Pressure ulcer of left hip, unstageable L89.220 and Cognitive communication deficit R41.841 [place] [address] [address] 09/27/2024 Jooyun Donnelly Abrasion, left hip, initial encounter S70.212A ; Wheelchair dependence Z99.3 ; Pressure ulcer of left hip, unstageable L89.220 and Cognitive communication deficit R41.841 [place] [address] [address] 10/04/2024 Jooyun Donnelly Pressure ulcer of left hip, unstageable L89.220 ; Pressure ulcer of left hip, stage 3 L89.223 ; Wheelchair dependence Z99.3 and Cognitive communication deficit R41.841 [facility] [address] [address] 10/11/2024 Jooyun Donnelly Pressure ulcer of left hip, unstageable L89.220 ; Pressure ulcer of left hip, stage 3 L89.223 ; Wheelchair dependence Z99.3 and Cognitive communication deficit R41.841 [place] [address] [address] 10/18/2024 Jooyun Donnelly Pressure ulcer of left hip, unstageable L89.220 ; Pressure ulcer of left hip, stage 3 L89.223 ; Wheelchair dependence Z99.3 and Cognitive communication deficit R41.841 [facility] [address] [address] 10/25/2024 Shay Vidal Wheelchair dependenc e Z99.3 ; Pressure ulcer of left hip, stage 3 L89.223 and Cognitive communication deficit R41.841 [facility] [address] [address] 11/01/2024 Shay Vidal Pressure ulcer of left hip, stage 4 L89.224 ; Wheelchair dependence Z99.3 and Cognitive communication deficit R41.841 [facility] [address] [address] 11/08/2024 Shay Vidal Pressure ulcer of left hip, stage 4 L89.224 ; Wheelchair dependence Z99.3 and Cognitive communication deficit R41.841 [facility] [address] [address] 11/15/2024 Shay Vidal Pressure ulcer of left hip, stage 4 L89.224 ; Wheelchair dependence Z99.3 and Cognitive communication deficit R41.841 [facility] [address] [address] 11/22/2024 Shay Vidal Pressure ulcer of left hip, stage 4 L89.224 ; Wheelchair dependence Z99.3 and Cognitive communication deficit R41.841 [facility] [address] [address] 11/27/2024 Shay Marcy Wheelchair dependenc e Z99.3 ; Pressure ulcer of left hip, stage 3 L89.223 and Cognitive communication deficit R41.841 [facility] [address] 12/06/2024 Shay Jacksone Wheelchair dependenc e Z99.3 ; Pressure ulcer of left hip, stage 3 L89.223 and Cognitive communication deficit R41.841 [facility] [address] [place] [address] 09/21/2024 Jocelin [facility] [address] [address] 09/24/2024 Jocelin [facility] [address] [address] 09/26/2024 Jocelin [place] [facility] [address] [place] [address] 09/28/2024 [facility] [address] [address] 10/04/2024 Brianna Donnelly [facility] [address] [place] [address] 10/12/2024 Jovenkatun Donnelly [facility] [address] [place] [address] 10/12/2024 Jomadhu Donnelly [facility] [address] [place] [address] 10/15/2024 Brianna Donnelly [facility] [address] [place] [address] 10/16/2024 Brianna Donnelly [facility] [address] [place] [address] 11/01/2024 Shay Vidal [facility] [address] [address] 11/07/2024 Shay Vidal [facility] [address] [place] [address] 12/06/2024 Shay Vidal [facility] [address] [address] 12/10/2024 Shay Vidal [facility] [address] [facility] [address] [address] 01/02/2025 Shay Vidal [facility] [address] [address] 01/29/2025 Shay Vidal Assessments Encounter Date Diagnosis (ICD Code) Assessment Notes Treatment Notes Treatment Clinical Notes Section Notes 09/13/2024 Abrasion, left hip, initial encounter (ICD-10 - S70.212A) On assessment today, Ricky is noted to be afebrile and other VS were within normal limits. The patient reports mild tenderness with palpation surround the wound area. We removed dressings, and I examined the wound site. The left hip wound is abrasion, and it has dried scab over it. The surround the wound area was erythema, but blanachable, and no drainage. There was no suggestive s/s of an underlying infectious process. There was no foul odor noted. No debridement needed today. The wound site were then cleansed with saline and thereafter, skin prep applied onto the wound site and covered dsd. Patient and assisted caregive were educated to protect wound site and offloading freqeuntly. Advised the caregiver to apply skin prep daily and monitor the S/S of infection reviewed and when to go to ED. Written instruction and skin prep prescription provided to the caregiver. Patient will have FU in one week. Patient and caregiver verbalized understand and questions or concerns addressed at this time. I, SCOTT Mccarthy, examined, evaluated , and treated the patient. Dr. Angie Kang was available for any questions or concerns that I may have had. A total of 30 minutes was spent on this visit (face to face and non face to face) documenting HPI and performing physical exam, reviewing previous notes and testing, reviewing and adjusting treatment plan, counseling the patient on treatment choices, disease process, expected outcomes, and documenting the findings in the note. 09/13/2024 Wheelchair dependence (ICD-10 - Z99.3) 09/20/2024 Pressure ulcer of left hip, unstageable (ICD-10 - L89.220) On assessment today, Ricky is noted to be afebrile and other VS were within normal limits. The patient reports mild tenderness with palpation surround the wound area. We removed dressings, and I examined the wound site. The left hip abrasion is deteriorated, and now it is unstageable pressure ulcer. The wound bed covered with thick escahr and the surround the wound area reness is not blanachable. There was no drainage. There was no suggestive s/s of an underlying infectious process. There was no foul odor noted. After examination, I discussed the indication of debridement and the Longterm staff was agreeable. I then performed debridement to remove devitalized tissues as outlined. He tolerated procedure well. The wound site were then cleansed with wound cleanser and thereafter, Silvadene applied onto the wound site and zinc to julio cesar wound areas. The site were then covered with a dry dressing. After I discussed the treatment plan with Dr. Kang, we changed the treatment plan to xeroform daily, and updated to the Longterm field case manager and send new prescription to [facility]. Patient and caregiver was educated to protect wound site continue performing above dressing changes daily. Advised patient to offloading pressure. S/S of infection reviewed and when to go to ED. Patient will have FU in one week. Written instruction and skin prep prescription provided to the caregiver. I, SCOTT Mccarthy, examined, evaluated , and treated the patient. Dr. Angie Kang was available for any questions or concerns that I may have had. 09/20/2024 Abrasion, left hip, initial encounter (ICD-10 - S70.212A) 09/20/2024 Wheelchair dependence (ICD-10 - Z99.3) 09/27/2024 Abrasion, left hip, initial encounter (ICD-10 - S70.212A) 10/04/2024 Pressure ulcer of left hip, unstageable (ICD-10 - L89.220) On assessment today, Ricky is noted to be afebrile and other VS were within normal limits. The patient denies pain or discomfort related to the wound. We removed dressings, and I examined the wound site. The left hip unstageble pressure ulcer is stable, still has thick eschar on it, but the eschar is softened. The surround the wound area had redness, and it was blanachable. There was no drainage. There was no suggestive s/s of an underlying infectious process. There was no foul odor noted. After examination, Dr. Guzman discussed the indication of debridement and the Long[facility] staff was agreeable. Dr. Guzman then performed debridement to remove devitalized tissues as outlined. He tolerated procedure well. I was able to debride the thick eschar and now the wound is stage 3 pressure ulcer. The wound bed has mix of granulation and escahr. The wound site were then cleansed with wound cleanser and thereafter, Santyl applied onto the wound site and zinc to julio cesar wound areas. The site were then covered with a dry dressing. Patient and caregiver was educated to protect wound site continue performing above dressing changes daily with Santyl. We will treat the wound with Santyl for 2 weeks and then apply wound vac. Advised patient to offloading pressure, change position frequently. S/S of infection reviewed and when to go to ED. Patient will have FU in one week. Written instruction provided to the caregiver. Brianna Hyatt FNP-BC, examined, evaluated , and treated the patient. Dr. Angie Kang was available for any questions or concerns that I may have had. 10/04/2024 Pressure ulcer of left hip, stage 3 (ICD-10 - L89.223) 10/11/2024 Pressure ulcer of left hip, unstageable (ICD-10 - L89.220) On assessment today, Ricky is noted to be afebrile and other VS were within normal limits. The patient denies pain or discomfort related to the wound. We removed dressings, and I examined the wound site. The left hip stage 3 pressure ulcer is stable, the wound bed covered with thick slough. The surround the wound area had redness, and it was blanachable. There was no suggestive s/s of an underlying infectious process. There was no foul odor noted. After examination, I discussed the indication of debridement and the Longterm staff was agreeable. I then performed debridement to remove devitalized tissues as outlined. He tolerated procedure well. The wound site were then cleansed with wound cleanser and thereafter, Santyl applied onto the wound site and zinc to julio cesar wound areas. The site were then covered with a dry dressing. Patient and caregiver was educated to protect wound site continue performing above dressing changes daily with Santyl. We will treat the wound with Santyl for one more week and then consider to apply wound vac. Advised patient to offloading pressure, change position frequently. S/S of infection reviewed and when to go to ED. Patient will have FU in one week. Written instruction provided to the caregiver. Brianna Hyatt FNP-BC, examined, evaluated , and treated the patient. Dr. Angie Kang was available for any questions or concerns that I may have had. 10/18/2024 Pressure ulcer of left hip, unstageable (ICD-10 - L89.220) On assessment today, Ricky is noted to be afebrile and other VS were within normal limits. The patient denies pain or discomfort related to the wound. We removed dressings, and I examined the wound site. The left hip stage 3 pressure ulcer is improving. The wound bed has mix of thick slough and granulation. The surround the wound area had redness, and it was blanachable. There was no suggestive s/s of an underlying infectious process. There was no foul odor noted. After examination, I discussed the indication of debridement and the Longterm staff was agreeable. I then performed debridement to remove devitalized tissues as outlined. He tolerated procedure well. The wound site were then cleansed with wound cleanser and thereafter, Santyl applied onto the wound site and zinc to julio cesar wound areas. The site were then covered with a dry dressing. Patient and caregiver was educated to protect wound site continue performing above dressing changes daily with Santyl. We will treat the wound with Santyl for one more week and then consider to apply wound vac. Advised patient to offloading pressure, change position frequently. S/S of infection reviewed and when to go to ED. Patient will have FU in one week. Written instruction provided to the caregiver. I, SCOTT Mccarthy, examined, evaluated , and treated the patient. Dr. Angie Kang was available for any questions or concerns that I may have had. 10/25/2024 Wheelchair dependence (ICD-10 - Z99.3) 11/01/2024 Pressure ulcer of left hip, stage 4 (ICD-10 - L89.224) 11/08/2024 Pressure ulcer of left hip, stage 4 (ICD-10 - L89.224) 11/15/2024 Pressure ulcer of left hip, stage 4 (ICD-10 - L89.224) completed 10 day course of amoxicillin clavulanate on 11/15/24 11/22/2024 Pressure ulcer of left hip, stage 4 (ICD-10 - L89.224) completed 10 day course of amoxicillin clavulanate on 11/15/24 11/27/2024 Pressure ulcer of left hip, stage 3 (ICD-10 - L89.223) 11/27/2024 Wheelchair dependence (ICD-10 - Z99.3) 12/06/2024 Wheelchair dependence (ICD-10 - Z99.3) 11/22/2024 Wheelchair dependence (ICD-10 - Z99.3) 12/06/2024 Pressure ulcer of left hip, stage 3 (ICD-10 - L89.223) 11/27/2024 Cognitive communication deficit (ICD-10 - R41.841) 11/08/2024 Wheelchair dependence (ICD-10 - Z99.3) 11/15/2024 Wheelchair dependence (ICD-10 - Z99.3) 10/25/2024 Pressure ulcer of left hip, stage 3 (ICD-10 - L89.223) 10/25/2024 Cognitive communication deficit (ICD-10 - R41.841) 11/01/2024 Cognitive communication deficit (ICD-10 - R41.841) 11/01/2024 Wheelchair dependence (ICD-10 - Z99.3) 10/18/2024 Pressure ulcer of left hip, stage 3 (ICD-10 - L89.223) 10/11/2024 Pressure ulcer of left hip, stage 3 (ICD-10 - L89.223) 09/13/2024 Cognitive communication deficit (ICD-10 - R41.841) 10/04/2024 Wheelchair dependence (ICD-10 - Z99.3) 09/27/2024 Wheelchair dependence (ICD-10 - Z99.3) 09/20/2024 Cognitive communication deficit (ICD-10 - R41.841) 09/27/2024 Pressure ulcer of left hip, unstageable (ICD-10 - L89.220) On assessment today, Ricky is noted to be afebrile and other VS were within normal limits. The patient reports mild tenderness with palpation surround the wound area. We removed dressings, and I examined the wound site. The left hip unstageble pressure ulcer has deteriorated with thick eschar, measuring larger this week. The wound bed covered with thick escahr and the surround the wound area was red and it was blanachable. There was no drainage. There was no suggestive s/s of an underlying infectious process. There was no foul odor noted. After examination, I discussed the indication of debridement and the Longterm staff was agreeable. I then performed debridement to remove devitalized tissues as outlined. He tolerated procedure well. I was able to debride the thick eschar and now the wound is stage 3 pressure ulcer. The wound bed has new granulation and the edge of the wound still has eschar attached. The wound site were then cleansed with wound cleanser and thereafter, xerofrom applied onto the wound site and zinc to julio cesar wound areas. The site were then covered with a dry dressing. Patient and caregiver was educated to protect wound site continue performing above dressing changes daily. Advised patient to offloading pressure. S/S of infection reviewed and when to go to ED. Patient will have FU in one week. Written instruction and skin prep prescription provided to the caregiver. I, SCOTT Mccarthy, examined, evaluated , and treated the patient. Dr. Angie Kang was available for any questions or concerns that I may have had. 10/04/2024 Cognitive communication deficit (ICD-10 - R41.841) 10/11/2024 Wheelchair dependence (ICD-10 - Z99.3) 10/18/2024 Wheelchair dependence (ICD-10 - Z99.3) 11/08/2024 Cognitive communication deficit (ICD-10 - R41.841) 11/15/2024 Cognitive communication deficit (ICD-10 - R41.841) 11/22/2024 Cognitive communication deficit (ICD-10 - R41.841) 12/06/2024 Cognitive communication deficit (ICD-10 - R41.841) 10/18/2024 Cognitive communication deficit (ICD-10 - R41.841) 10/11/2024 Cognitive communication deficit (ICD-10 - R41.841) 09/27/2024 Cognitive communication deficit (ICD-10 - R41.841) 12/13/2024 Andie García is followed for 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 He continues with wound vac at this time. He is accompanied by a caregiver from his alf. HIs wound vac was not able to be placed due to electric charging cord stripped and pending alf to [facility] On assessment today, Ricky is noted to [...] discussed the indication of debridement and the Longterm staff and patient was agreeable. I then [...] and and when charging cable arrives to alf Educated on importance of off loading, repositioning, nutrition, hydration I, Shay Vidal, MSN, LIBRARY CATALOGING TECHNICIAN, COIN MACHINE OPERATOR-C, examined, evaluated, and treated the patient. Dr. Angie Kang was available for any questions or concerns that I may have had. 09/13/2024 Other Ky Hyatt MD confirm that Brianna HASSAN understands and adheres to the guidelines of the established clinical protocols in the office. I confirm the above care provided was rendered under my general supervision as initially planned and subsequently discussed and supervised by me. 09/20/2024 Other 10/04/2024 Other Ky Hyatt MD confirm that Brianna HASSAN understands and adheres to the guidelines of the established clinical protocols in the office. I confirm the above care provided was rendered under my general supervision as initially planned and subsequently discussed and supervised by me. 10/11/2024 Other 10/25/2024 Andie García returns today for wound care follow up of left hip pressure ulcer stage 3. He is accompanied by a caregiver from his alf. His current treatment is Santyl and foam dressing. Caregiver reports dressing changes as recommended with no acute concerns at today's visit. On assessment today, Ricky is noted to be afebrile and other VS were within normal limits. The patient appears not to have pain or discomfort related to the wound. We removed dressings, and I examined the wound site. There is no overt s/s of underlying infectious property. No odor or erythema noted The left hip stage 3 pressure ulcer is noted as stable at today's visit based on measurements and assessment from last visit. The wound bed is noted with slough throughout, however there is granulated tissue noted as well. Has mix of thick slough and granulation. The periwound is noted with epibole. He continues with UM at 6-8 o'clock with max depth of 1cm After examination, I discussed the indication of debridement and the Longterm staff and patient was agreeable. I then performed debridement to remove devitalized tissues as outlined. He tolerated procedure well. The wound site were then cleansed with normal saline, and thereafter, Santyl applied onto the wound site and zinc to julio cesar wound areas. The site were then covered with a foam dressing. Patient and caregiver was educated to continue the above treatment plan with follow up at clinic next week. Primary provider considering wound vac, and will be reviewed at next weeks visit. Risk Assessment performed and reveal factors including but not limited to: fragile skin, existing or healed ulcers, blood flow impairments, pain in area of body exposed to pressure Consider obtaining a home health registered nurse consult to perform nutrition assessment to aid in wound healing, encouraged fluids Educated on importance of off loading, repositioning, nutrition, hydration I, Shay Vidal, MSN, LIBRARY CATALOGING TECHNICIAN, COIN MACHINE OPERATOR-C, examined, evaluated, and treated the patient. Dr. Angie Kang was available for any questions or concerns that I may have had. 11/01/2024 Andie García continues with weekly follow up for chronic left hip pressure ulcer, stage 4. He is accompanied by a caregiver from his alf. His current treatment is Santyl and foam dressing. Caregiver reports dressing changes as recommended with no acute concerns at today's visit. On assessment today, Ricky is noted to be afebrile and other VS were within normal limits. The patient appears not to have pain or discomfort related to the wound. We removed dressings, and I examined the wound site. There is no overt s/s of underlying infectious property. No odor or erythema noted The left hip stage 4 pressure ulcer is noted as a full-thickness skin and tissue loss with exposed / directly palpable fascia, muscle in the ulcer. Slough is present throughout the wound bed, however not obscuring the wound bed. The wound continues with undermining at 6-9 o'clock with max depth of 1cm. The periwound is noted with epibole and fibrinous edges. His wound today is stable based on measurements and assessment from last visit. After examination, I discussed the indication of debridement and the Longterm staff and patient was agreeable. I then performed debridement to remove devitalized tissues as outlined. He tolerated procedure well. Silver nitrate utilized to epibole. The wound site were then cleansed with normal saline, and thereafter, Santyl applied onto the wound site and zinc to julio cesar wound areas. The site were then covered with a foam dressing. Patient and caregiver was educated to continue the above treatment plan with follow up at clinic next week. Primary provider considering wound vac, and will be reviewed at next weeks visit. Risk Assessment performed and reveal factors including but not limited to: fragile skin, existing or healed ulcers, blood flow impairments, pain in area of body exposed to pressure Consider obtaining a home health registered nurse consult to perform nutrition assessment to aid in wound healing, encouraged fluids Educated on importance of off loading, repositioning, nutrition, hydration wound culture obtained today to R/O underlying infectious property due to consideration of wound vac application to aid with healing. Wound vac ordering was initiated today and his staff with him today will confirm the nurse at the alf will be able to perform dressing changes. I, Shay Vidal, MSN, LIBRARY CATALOGING TECHNICIAN, COIN MACHINE OPERATOR-C, examined, evaluated, and treated the patient. Dr. Angie Kang was available for any questions or concerns that I may have had. Patient educated on importance of proper positioning and support to minimize tissue pressure. If there is any development of any new areas of skin damage, prompt review of the method and intensity of preventive measures will be reviewed again. 11/08/2024 Andie García continues with weekly follow up for chronic left hip pressure ulcer, stage 4. He is accompanied by a caregiver from his alf. His current treatment is Santyl and foam dressing. Caregiver reports dressing changes as recommended with no acute concerns at today's visit. On assessment today, Ricky is noted to be afebrile and other VS were within normal limits. The patient appears not to have pain or discomfort related to the wound. We removed dressings, and I examined the wound site. There is no overt s/s of underlying infectious property. No odor or erythema noted The left hip stage 4 pressure ulcer is noted with exposed / directly palpable fascia, muscle in the ulcer. Slough is present throughout the wound bed, however not obscuring the wound bed. The wound continues with undermining, however last week was at 6-9 o'clock with max depth of 1cm, and this week 6/8 with max depth 1.5cm. The periwound is noted with epibole and fibrinous edges. His wound today is noted with deterioration based on measurements and assessment from last visit. His depth and UM has increased depth. After examination, I discussed the indication of debridement and the [facility] staff and patient was agreeable. I then performed debridement to remove devitalized tissues as outlined. He tolerated procedure well. Silver nitrate utilized to epibole. The wound site were then cleansed with normal saline, and thereafter, Santyl applied onto the wound site and zinc to julio cesar wound areas. The site were then covered with a foam dressing. Patient and caregiver was educated to continue the above treatment plan with follow up at clinic next week. 11/01/24 wound culture obtained and grew proteus Mirabilis, enterococci, Escherichia coli, susceptible to amox clav, escribed 10-day course on 11/07/24. Due to infection, wound vac on hold at this time Educated on importance of off loading, repositioning, nutrition, hydration I, Shay Vidal, MSN, LIBRARY CATALOGING TECHNICIAN, COIN MACHINE OPERATOR-C, examined, evaluated, and treated the patient. Dr. Angie Kang was available for any questions or concerns that I may have had. Patient educated on importance of proper positioning and support to minimize tissue pressure. If there is any development of any new areas of skin damage, prompt review of the method and intensity of preventive measures will be reviewed again. I, Ky Kang MD confirm that Shay Vidal, MSN, LIBRARY CATALOGING TECHNICIAN, COIN MACHINE OPERATOR-C understands and adheres to the guidelines of the established clinical protocols in the office. I confirm the above care provided was rendered under my general supervision as initially planned and subsequently discussed and supervised by me. 11/15/2024 Andie García presents for his weekly wound care follow up. He is followed for chronic left hip pressure ulcer, stage 4. He is accompanied by a caregiver from his alf. His current treatment is Santyl and foam dressing. Caregiver reports dressing changes as recommended with no acute concerns at today's visit. On assessment today, Ricky is noted to be afebrile and other VS were within normal limits. The patient appears not to have pain or discomfort related to the wound. We removed dressings, and I examined the wound site. There is no underlying s/s of infection. No odor or erythema noted The left hip stage 4 pressure ulcer is noted with exposed / directly palpable fascia, muscle in the ulcer. Slough is present throughout the wound bed. The wound continues with undermining, 6-8 and continues with max depth 1.5cm. The periwound is noted with epibole and fibrinous edges. His wound today is noted with deterioration based on measurements and assessment from last visit. After examination, I discussed the indication of debridement and the [facility] staff and patient was agreeable. I then performed debridement to remove devitalized tissues as outlined. He tolerated procedure well. The wound site were then cleansed with normal saline, and wound vac applied with black foam and zinc to periwound at continuous 125mmhg. Patient and caregiver was educated to continue the above treatment plan with follow up at clinic next week. Change vac every 3 days and call with questions or concerns Educated on importance of off loading, repositioning, nutrition, hydration I, Shay Vidal, MSN, LIBRARY CATALOGING TECHNICIAN, COIN MACHINE OPERATOR-C, examined, evaluated, and treated the patient. Dr. Angie Kang was available for any questions or concerns that I may have had. 11/22/2024 Andie García presents for his weekly wound care follow up. He is followed for chronic left hip pressure ulcer, stage 4. He is accompanied by a caregiver from his alf. His current treatment is Santyl and foam dressing. Caregiver reports dressing changes as recommended with no acute concerns at today's visit. On assessment today, Ricky is noted to be afebrile and other VS were within normal limits. The patient appears not to have pain or discomfort related to the wound. We removed dressings, and I examined the wound site. There is no underlying s/s of infection. No odor or erythema noted The left hip stage 4 pressure ulcer is noted with exposed / directly palpable fascia, muscle in the ulcer. Slough is present throughout the wound bed. The wound continues with undermining, 6-8 and continues with max depth 1.5cm. The periwound is noted with epibole and fibrinous edges. His wound today is noted with deterioration based on measurements and assessment from last visit. After examination, I discussed the indication of debridement and the [facility] staff and patient was agreeable. I then performed debridement to remove devitalized tissues as outlined. He tolerated procedure well. The wound site were then cleansed with normal saline, and wound vac applied with black foam and zinc to periwound at continuous 125mmhg. Patient and caregiver was educated to continue the above treatment plan with follow up at clinic next week. Change vac every 3 days and call with questions or concerns Educated on importance of off loading, repositioning, nutrition, hydration Shay Hyatt MSN, LIBRARY CATALOGING TECHNICIAN, COIN MACHINE OPERATOR-C, examined, evaluated, and treated the patient. Dr. Angie Kang was available for any questions or concerns that I may have had. 11/27/2024 Andie García is followed for 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 He continues with wound vac at this time. He is accompanied by a caregiver from his alf. Caregiver reports dressing changes as recommended with no acute concerns at today's visit. On assessment today, Ricky is noted to be afebrile and other VS were within normal limits. The patient appears not to have pain or discomfort related to the wound. We removed dressings, and I examined the wound site. There is no underlying s/s of infection. No odor or erythema noted The left hip stage 3 pressure ulcer is noted with exposed / directly palpable fascia, muscle in the ulcer. Slough is present throughout the wound bed. The wound continues with a tunnel at 6 o'clock with max depth of 3cm The periwound is noted with epibole and fibrinous edges. His wound today is stable based on last visits assessment and measurements. After examination, I discussed the indication of debridement and the [facility] staff and patient was agreeable. I then performed debridement to remove devitalized tissues as outlined. He tolerated procedure well. The wound site were then cleansed with normal saline, and wound vac applied with black foam and zinc to periwound at continuous 125mmhg. Patient and caregiver was educated to continue the above treatment plan with follow up at clinic next week. Change vac every 3 days and call with questions or concerns Educated on importance of off loading, repositioning, nutrition, hydration Shay Hyatt, MSN, LIBRARY CATALOGING TECHNICIAN, COIN MACHINE OPERATOR-C, examined, evaluated, and treated the patient. Dr. Angie Kang was available for any questions or concerns that I may have had. 12/06/2024 Andie García is followed for 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 He continues with wound vac at this time. He is accompanied by a caregiver from his alf. HIs wound vac was not able to be placed due to electric charging cord stripped and pending alf to [facility] On assessment today, Ricky is noted to [...] discussed the indication of debridement and the [facility] staff and patient was agreeable. I then [...] and and when charging cable arrives to alf Educated on importance of off loading, repositioning, nutrition, hydration I, Shay Vidal, MSN, LIBRARY CATALOGING TECHNICIAN, COIN MACHINE OPERATOR-C, examined, evaluated, and treated the patient. Dr. Angie Kang was available for any questions or concerns that I may have had. 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 223 Pressure ulcer of left hip, stage 4 L89. 224
== END 2025-05-08 11:20 | disposition home or self-care (01) ==
LOC: HO.HSM 10:57
PROVIDERS: PCP Internal Medicine; Referring Provider Internal Medicine; Visit Provider Registered Nurse
DX: G20.C Parkinsonism, unspecified (principal); I95.1 Orthostatic hypotension; P91.60 Hypoxic ischemic encephalopathy [HIE], unspecified
CPT/HCPCS: 99214

== ENCOUNTER → 2025-05-08 10:57 | Outpatient (BNVA) | payer MEDICARE, MEDICAID, SELFPAY | PROVIDERS: PCP Internal Medicine; Referring Provider Internal Medicine; Visit Provider Registered Nurse | DX: G20.C Parkinsonism, unspecified (principal); I95.1 Orthostatic hypotension; P91.60 Hypoxic ischemic encephalopathy [HIE], unspecified; Z79.899 Other long term (current) drug therapy | CPT/HCPCS: 99212 ==